=== PATIENT | female | born 2000 | race Caucasian/White ===

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

== ENCOUNTER → 2021-01-07 08:01 | Outpatient (BNVA) | payer MEDICAID, SELFPAY | PROVIDERS: PCP Nurse Practitioner; Visit Provider Psychiatry & Neurology Psychiatry | DX: F33.2 Major depressive disorder, recurrent severe without psychotic features (principal); F41.1 Generalized anxiety disorder; F60.3 Borderline personality disorder; F12.10 Cannabis abuse, uncomplicated; F17.200 Nicotine dependence, unspecified, uncomplicated; F10.20 Alcohol dependence, uncomplicated | CPT/HCPCS: 99214 ==

== ENCOUNTER 2021-01-11 18:33 | Emergency (ER) | payer MEDICAID, SELFPAY ==
--- NOTE | 2021-01-11 19:00 | ECG_ITS ---
[facility] Test Date: 2021-01-11 Pat Name: Conchita Cancino Department: Room: Gender: Female Field Identification Specialist: : 2000 Requested By: Sundeep Sahu Order Number: [id number] Collins MD: Vangie Arthur M.D. Measurements Intervals [place] Rate: 73 P: 5 NE: 171 QRS: 8 QRSD: 104 T: 12 QT: 400 QTc: 443 Interpretive Statements SINUS RHYTHM Compared to ECG 10/26/2019 12:14:22 Sinus tachycardia no longer present Indeterminate axis no longer present Electronically Signed On 01-12-2021 16:44:50 CDT by Vangie Arthur M.D. [email or web address]
--- NOTE | 2021-01-11 19:06 | ED_ITS ---
HPI - Abdominal Pain General: Chief Complaint: Dizziness Stated Complaint: SYNCOPE ABD PAIN Time Seen by Provider: 01/11/21 19:00 History of Present Illness: HPI narrative: 20-year-old female comes in today with complaints of feeling lightheaded and becoming near syncopal. Patient was started on azithromycin today for a positive chlamydia test that was done last week. Patient takes paroxetine routinely for her depression. Patient does have a history of cannabis use, nicotine dependence, alcohol use, major depression, anxiety, borderline personality disorder. Patient reports that she cannot really say what happened she is became lightheaded and seeing some flashes of light in front of her eyes and then sat down and recovered. Patient appears well. Patient does report some suprapubic abdominal tenderness. Related Data: Date of Last Menstrual Period: 07/12/20 Review of Systems General: Reports: 10 or more systems reviewed and unremarkable except in HPI and below GI: Reports: abdominal pain Neuro: Reports: other (Lightheadedness) [facility] ED PFSH: Medical History (Updated 01/11/21 @ 21:03 by JUAN MIGUEL Ren) Anxiety and depression Bronchospasm Cluster B personality disorder Recurrent UTI Surgical History H/O esophagogastroduodenoscopy (03/03/20) normal Family History Other Bipolar disorder Social History Smoking and tobacco status: current every day smoker cigarettes Packs smoked per day: 0.50 Quit status (tobacco): has tried quititng Number of times tried to quit tobacco: 2 Second hand smoke exposure: Yes Smoking risk assessment/counseling performed?: No Alcohol intake: current Alcohol intake frequency: holidays/special occasions only Desire information about alcohol rehabilitation?: No Counseling given: No Desire information about substance/drug rehabilitation?: No Counseling given: No Adopted: No Caregiver/support person: No Lives independently: Yes Household members: family Housing: House Marital status: Single Number of children: 0 Highest education level completed: High School Graduate service: No Current occupational status: employed Current occupation: [employer] History of recent travel: No Female Reproductive History: Date of last menstrual period: 07/12/20 Para: 0 Spontaneous abortions: Yes (06/22/2019 had total 4 SAB but does not know when <8 weeks) Physical Exam Const: COMMON NORMALS: no acute distress and patient oriented x3 GENERAL APPEARANCE: cooperative HENMT: COMMON NORMALS: normocephalic, TM's normal bilaterally and Normal external nose present HEAD & SCALP: normal to inspection and normocephalic NOSE: Normal external nose present TYMPANIC MEMBRANE: TM's normal bilaterally MOUTH: Normal oral and palatal mucosa present THROAT: posterior oropharynx normal Eye: GENERAL EYE: appearance normal, both eyes and all related structures Neck/C-Spine: COMMON NORMALS: full ROM Lymph: LYMPHATIC: no lymphadenopathy noted Chest: COMMONS NORMALS: normal inspection of the chest Resp: COMMON NORMALS: normal respiratory effort EFFORT & INSPECTION: Yes able to speak in complete sentences Cardio: COMMON NORMALS: regular rate and regular rhythm RATE: regular rate RHYTHM: regular rhythm GI: COMMON NORMALS: non-tender : COMMON NORMALS: Yes no CVA tenderness BLADDER/KIDNEY EXAM: Yes no CVA tenderness Back/Pelvis: COMMON NORMALS: no CVA tenderness and thoracic and lumbar spine normal to inspection Extremity: COMMON NORMALS: normal to inspection Neuro: COMMON NORMALS: patient oriented x3 and moves all extremities Psych: COMMON NORMALS: mental status grossly normal and cooperative Skin: COMMON NORMALS: no rashes or lesions noted GENERAL SKIN EXAM: no rashes or lesions noted Course Vital Signs: Vital signs: Vital Signs Temperature 98.5 F 01/11/21 19:29 Pulse Rate 79 01/11/21 19:29 Respiratory Rate 16 01/11/21 19:29 Blood Pressure 103/62 01/11/21 19:29 Pulse Oximetry 97 01/11/21 19:29 MDM - Abdominal Pain MDM Narrative: Medical decision making narrative: Patient comes in today for complaints of lightheadedness and fainting episode. Patient did not fall or injure herself with the episode. Patient reports that she started seeing spots and felt like she was going to pass out and sat down. Patient then aroused and EMS was called. Patient comes in exam is normal. Respirations are even lungs are clear to auscultation. Vital signs are normal. Differential diagnosis includes but not limited to vasovagal syncope, anxiety, substance abuse. Laboratory values were unremarkable. It was noted that patient is . Patient has recently been started on azithromycin for chlamydia. I encourage patient to drink plenty of fluids. She was given 1 L of IV fluids with improvement of overall symptoms. Recommend follow-up patient reported understanding agreed to plan. Lab Data: Labs: Lab Results 01/11/21 01/11/21 01/11/21 Range/Units 19:20 19:20 19:20 WBC 12.7 (4.5-13.0) 10^3/ uL RBC 3.92 L (4.1-5.3) 10^6/u L Hgb 11.0 L (11.5-15.3) g/dL Hct 33.2 L (37.0-47.0) % MCV 84.7 (81-99) fL MCH 28.1 (28.0-34.0) pg MCHC 33.1 (30.0-36.0) g/dL RDW 14.7 (12.1-15.1) % Plt Count 224 (130-400) 10^3/c mm MPV 10.5 H (7.4-10.4) fL Neut % (Auto) 75.6 % Lymph % (Auto) 16.3 % [place] % (Auto) 6.9 % Eos % (Auto) 0.5 % Baso % (Auto) 0.2 % Neut # (Auto) 9.64 H (1.8-8.0) 10^3/u L Lymph # (Auto) 2.1 (1.5-6.5) 10^3/u L [place] # (Auto) 0.9 (0.2-0.9) 10^3/u L Eos # (Auto) 0.1 (0.0-0.8) 10^3/u L Baso # (Auto) 0.0 (0.0-0.1) 10^3/u L Nucleated RBC % (a uto) 0 % Nucleated RBCs # 0.0 /100WBC Sodium 136 (136-145) mmol/L Potassium 3.4 L (3.5-5.1) mmol/L Chloride 105 (98-107) mmol/L Carbon Dioxide 21 L (22-29) mmol/L Anion Gap 13.4 (5-19) BUN 9 (6-20) mg/dL Creatinine 0.4 L (0.5-0.9) mg/dL GFR Calculation 205.6 H (90-130) mL/min Glucose 86 (65-115) mg/dL Calculated Osmolal ity 280 L (285-295) mOsm/k g Calcium 8.3 L (8.5-10.5) mg/dL Total Bilirubin 0.2 (0.15-1.2) mg/dL AST 10 (0-32) U/L ALT 7 (0-33) U/L Alkaline Phosphata se 66 (35-105) IU/L Total Protein 5.8 L (6.6-8.7) g/dL Albumin 3.3 L (3.5-5.2) g/dL Globulin 2.5 (1.3-4.6) g/dL Lipase 21 (13-60) U/L HCG, Qual Positive H (Negative) Urine Color (Yellow) Urine Appearance (CLEAR) Urine pH (5-7) Ur Specific Gravit y (1.005-1.030) Urine Protein (Negative) Urine Glucose (UA) (Normal) Urine Ketones (Negative) Urine Blood (Negative) Urine Nitrate (Negative) Urine Bilirubin (Negative) Urine Urobilinogen (Negative) mg/dL Ur Leukocyte Kalina ase (Negative) Urine RBC (0-2) /hpf Urine WBC (0-5) /hpf Ur Squamous Epith Cells (0-5) /hpf Amorphous Sediment Urine Bacteria (NONE) /hpf Urine Mucus /hpf 01/11/21 Range/Units 19:45 WBC (4.5-13.0) 10^3/ uL RBC (4.1-5.3) 10^6/u L Hgb (11.5-15.3) g/dL Hct (37.0-47.0) % MCV (81-99) fL MCH (28.0-34.0) pg MCHC (30.0-36.0) g/dL RDW (12.1-15.1) % Plt Count (130-400) 10^3/c mm MPV (7.4-10.4) fL Neut % (Auto) % Lymph % (Auto) % [place] % (Auto) % Eos % (Auto) % Baso % (Auto) % Neut # (Auto) (1.8-8.0) 10^3/u L Lymph # (Auto) (1.5-6.5) 10^3/u L [place] # (Auto) (0.2-0.9) 10^3/u L Eos # (Auto) (0.0-0.8) 10^3/u L Baso # (Auto) (0.0-0.1) 10^3/u L Nucleated RBC % (a uto) % Nucleated RBCs # /100WBC Sodium (136-145) mmol/L Potassium (3.5-5.1) mmol/L Chloride (98-107) mmol/L Carbon Dioxide (22-29) mmol/L Anion Gap (5-19) BUN (6-20) mg/dL Creatinine (0.5-0.9) mg/dL GFR Calculation (90-130) mL/min Glucose (65-115) mg/dL Calculated Osmolal ity (285-295) mOsm/k g Calcium (8.5-10.5) mg/dL Total Bilirubin (0.15-1.2) mg/dL AST (0-32) U/L ALT (0-33) U/L Alkaline Phosphata se (35-105) IU/L Total Protein (6.6-8.7) g/dL Albumin (3.5-5.2) g/dL Globulin (1.3-4.6) g/dL Lipase (13-60) U/L HCG, Qual (Negative) Urine Color Yellow (Yellow) Urine Appearance Clear (CLEAR) Urine pH 6 (5-7) Ur Specific Gravit y 1.020 (1.005-1.030) Urine Protein Neg (Negative) Urine Glucose (UA) Norm (Normal) Urine Ketones Negative (Negative) Urine Blood Neg (Negative) Urine Nitrate Negative (Negative) Urine Bilirubin Neg (Negative) Urine Urobilinogen 1 H (Negative) mg/dL Ur Leukocyte Kalina ase Trace H (Negative) Urine RBC 0-4 H (0-2) /hpf Urine WBC 5-10 H (0-5) /hpf Ur Squamous Epith Cells 10-15 H (0-5) /hpf Amorphous Sediment Not Reportable Urine Bacteria Trace (NONE) /hpf Urine Mucus 1+ /hpf EKG Data ^: EKG 1: Attestation: I personally reviewed and interpreted this EKG as follows: (1930, EKG shows a normal EKG with a sinus rhythm at 73 bpm and regular. There is no ectopy or ST elevation. There is no sign of acute infarct. No prior example is for comparison.) Discharge Plan Discharge Patient Disposition: Home Clinical Impression: Fainting Qualifiers: Syncope type: vasovagal syncope Qualified Code(s): R55 - Syncope and collapse Qualifiers: Weeks of gestation: less than 8 weeks Qualified Code(s): Z3A.01 - Less than 8 weeks gestation of Condition: Stable Prescriptions: No Action fluoxetine [Prozac] 20 mg capsule 20 mg PO DAILY@0900 Qty: 30 RF: 2 albuterol sulfate [Ventolin HFA] 90 mcg/actuation HFA aerosol inhaler 2 puff inhalation Q6H PRN (Reason: shortness of breath or wheezing) Qty: 6.7 RF: 0 Low Iron 27 mg iron- 1 mg tablet 1 tab PO DAILY Qty: 30 RF: 8 Reglan 10 mg tablet 10 mg PO Q6H PRN (Reason: nausea and vomiting) Qty: 20 RF: 0 Discharge Orders: Discharge ED (Routine); Ordered 01/11/21 Ordered By: Sundeep Novak Referrals: Rudy Michelle, PROMOTIONAL MARKETING AGENT-C [Primary Care Provider] - Discharge Diet: Usual diet Discharge Activity: Increase activity as tolerated Patient Instructions: Syncope (ED), Opioid Safety Activity Restrictions/Additional Instructions: Drink plenty of fluids. Continue with routine medications as directed. Follow- up with your SUPERVISOR ADVICE for other instructions. Return to the ER for new concerns. Coding Level of Care Code ED Mosquito Sprayer for Padilla Fwally Exam Comprehensive
[2021-01-11 19:28] LABS: Basophils % 0.2 %; Eosinophils # 0.1 10^3/uL (0.0-0.8); Eosinophils % 0.5 %; Hematocrit 33.2 % (37.0-47.0); Lymphocytes # 2.1 10^3/uL (1.5-6.5); Lymphocytes % 16.3 %; Mean Corpuscular HGB Conc 33.1 g/dL (30.0-36.0); Mean Corpuscular Hemoglobin 28.1 pg (28.0-34.0); Mean Corpuscular Volume 84.7 fL (81-99); Mean Platelet Volume 10.5 fL (7.4-10.4); Monocytes # 0.9 10^3/uL (0.2-0.9); Monocytes % 6.9 %; Neutrophils # 9.64 10^3/uL (1.8-8.0); Neutrophils % 75.6 %; Nucleated Red Blood Cells % 0 %; Platelet Count 224 10^3/cmm (130-400); Red Blood Count 3.92 10^6/uL (4.1-5.3); Red Cell Distribution Width 14.7 % (12.1-15.1); White Blood Count 12.7 10^3/uL (4.5-13.0)
[2021-01-11 19:29] VITALS: BP 103/62; PULSE 79; RESP 16; TEMP 36.9; O2SAT 97; BMI 36.8
[2021-01-11] MEDS: sodium chloride 0.9% 1,000 ML 999 ML IV (19:45)
[2021-01-11] MEDS: ondansetron 2 mg/ML SDV 2 mL 4 MG IVP (19:45)
[2021-01-11 19:49] LABS: Alanine Aminotransferase 7 U/L (0-33); Albumin Level 3.3 g/dL (3.5-5.2); Alkaline Phosphatase 66 IU/L (35-105); Anion Gap 13.4 (5-19); Aspartate Amino Transferase 10 U/L (0-32); Blood Urea Nitrogen 9 mg/dL (6-20); Calcium 8.3 mg/dL (8.5-10.5); Carbon Dioxide 21 mmol/L (22-29); Chloride 105 mmol/L (98-107); Globulin 2.5 g/dL (1.3-4.6); Glomerular Filtration Rate 205.6 mL/min (90-130); Glucose 86 mg/dL (65-115); Lipase 21 U/L (13-60); Osmolality Calculated 280 mOsm/kg (285-295); Potassium 3.4 mmol/L (3.5-5.1); Sodium 136 mmol/L (136-145); Total Bilirubin 0.2 mg/dL (0.15-1.2); Total Protein 5.8 g/dL (6.6-8.7)
[2021-01-11 19:50] LABS: HCG, Serum Qual Positive (Negative)
[2021-01-11 20:14] LABS: Urine Appearance Clear (CLEAR); Urine Color Yellow (Yellow); pH Urine 6 (5-7)
[2021-01-11 20:15] LABS: Add Urine Culture? No; Add Urine Microscopic? YES; Bacteria Urine TRACE /hpf; Bilirubin Urine Neg (Negative); Blood Urine Neg (Negative); Glucose Urine UA Norm (Normal); Ketones Urine Negative (Negative); Leukocyte Esterase Urine Trace (Negative); Mucus Urine 1+ /hpf; Nitrate Urine Negative (Negative); Protein Urine Neg (Negative); RBC Urine 0-4 /hpf (0-2); Urobilinogen Urine 1 mg/dL (Negative)
[2021-01-11 21:07] VITALS: BP 105/78; PULSE 76; RESP 17; O2SAT 99
== END 2021-01-11 21:15 | disposition home or self-care (01) ==
PROVIDERS: Emergency Provider Nurse Practitioner Family; PCP Nurse Practitioner
DX: O26.891 Other specified pregnancy related conditions, first trimester (principal); R55 Syncope and collapse; O99.331 Smoking (tobacco) complicating pregnancy, first trimester; F17.210 Nicotine dependence, cigarettes, uncomplicated; Z3A.01 Less than 8 weeks gestation of pregnancy
CPT/HCPCS: 80053; 81001; 83690; 84703; 85025; 93005; 96361; 96374; 99284; J2405; J7030

== ENCOUNTER → 2021-01-12 15:35 | Outpatient (BNVA) | payer MEDICAID, SELFPAY | PROVIDERS: PCP Nurse Practitioner; Visit Provider Nurse Practitioner Family | DX: Z20.822 Contact with and (suspected) exposure to COVID-19 (principal) | CPT/HCPCS: 87635 ==

== ENCOUNTER 2021-03-17 20:47 | Outpatient (CLI) | payer MEDICAID, SELFPAY ==
[2021-03-17 21:01] VITALS: TEMP 35.8
[2021-03-17 21:03] VITALS: BP 134/60; PULSE 96
[2021-03-17 21:09] VITALS: RESP 16; BMI 37.0
[2021-03-17 22:13] LABS: Add Urine Culture? No; Add Urine Microscopic? YES; Bacteria Urine 4+ /hpf; Bilirubin Urine Neg (Negative); Blood Urine Neg (Negative); Glucose Urine UA Norm (Normal); Ketones Urine Negative (Negative); Leukocyte Esterase Urine 2+ (Negative); Nitrate Urine Negative (Negative); Protein Urine Neg (Negative); RBC Urine 0-4 /hpf (0-2); Squamous Epithelial Cell Urine 40-55 /hpf (0-5); Urine Appearance Cloudy (CLEAR); Urine Color Yellow (Yellow); Urobilinogen Urine 4 mg/dL (Negative); WBC Urine 40-55 /hpf (0-5); pH Urine 5 (5-7)
--- NOTE | 2021-03-19 10:05 | PC.NURSE ---
SCRIPT FOR MACROBID 100MG PO BID X7 DAYS CALLED INTO [facility] AT 1005 03/19/2021, THIS LINER ROLL CHANGER TALKED WITH ALONZO AT PHARMACY AND THEN CALLED PATIENT TO LET HER KNOW THAT IT WAS CALLED IN.
--- NOTE | 2021-03-19 10:07 | PC.NURSE ---
UNABLE TO REACH PATIENT AT [phone] AND UNABLE TO LEAVE MESSAGE EITHER.
== END 2021-03-17 22:38 | disposition home or self-care (01) ==
LOC: OPOB 20:52 → OBGYN 20:54
PROVIDERS: PCP Nurse Practitioner; Visit Provider Family Medicine
DX: O26.899 Other specified pregnancy related conditions, unspecified trimester (principal); Z3A.00 Weeks of gestation of pregnancy not specified; R10.9 Unspecified abdominal pain
CPT/HCPCS: 81001; 99211

== ENCOUNTER → 2021-03-31 08:02 | Outpatient (BNVA) | payer MEDICAID, SELFPAY | PROVIDERS: PCP Nurse Practitioner; Referring Provider Family Medicine; Visit Provider Specialist | DX: F44.5 Conversion disorder with seizures or convulsions (principal); F17.200 Nicotine dependence, unspecified, uncomplicated | CPT/HCPCS: 95816 ==

== ENCOUNTER 2021-04-01 21:52 | Outpatient (CLI) | payer MEDICAID, SELFPAY ==
[2021-04-01] VITALS (7 sets, daily range): BP systolic 95–125; BP diastolic 53–78; PULSE 53–196; RESP 17; TEMP 36.6; BMI 39.8
[2021-04-01 22:45] LABS: Bilirubin Urine Neg (Negative); Blood Urine Neg (Negative); Glucose Urine UA Norm (Normal); Ketones Urine 1+ (Negative); Leukocyte Esterase Urine Negative (Negative); Nitrate Urine Negative (Negative); Protein Urine Neg (Negative); Urine Appearance Clear (CLEAR); Urine Color Straw (Yellow); Urobilinogen Urine Norm (Negative); pH Urine 7 (5-7)
[2021-04-01 23:00] LABS: Add Urine Culture? No; Bacteria Urine TRACE /hpf; Squamous Epithelial Cell Urine 0-4 /hpf (0-5)
== END 2021-04-01 23:47 | disposition home or self-care (01) ==
LOC: OPOB 21:56 → OBGYN 21:58
PROVIDERS: PCP Nurse Practitioner; Visit Provider Family Medicine
DX: O21.9 Vomiting of pregnancy, unspecified (principal); Z3A.00 Weeks of gestation of pregnancy not specified; M54.9 Dorsalgia, unspecified
CPT/HCPCS: 59025; 81001; 99211

== ENCOUNTER → 2021-04-05 11:09 | Outpatient (BNVA) | payer MEDICAID, SELFPAY | PROVIDERS: PCP Nurse Practitioner; Visit Provider Psychiatry & Neurology Psychiatry | DX: F43.12 Post-traumatic stress disorder, chronic (principal); F33.2 Major depressive disorder, recurrent severe without psychotic features; F41.1 Generalized anxiety disorder; F60.3 Borderline personality disorder; Z34.90 Encounter for supervision of normal pregnancy, unspecified, unspecified trimester; F10.20 Alcohol dependence, uncomplicated; F17.210 Nicotine dependence, cigarettes, uncomplicated | CPT/HCPCS: 99214 ==

== ENCOUNTER 2021-04-17 16:00 | Outpatient (CLI) | payer MEDICAID, SELFPAY ==
[2021-04-17 16:11] VITALS: BP 108/53; PULSE 86; TEMP 37.2
[2021-04-17 16:16] VITALS: BMI 39.6
[2021-04-17 16:44] VITALS: BP 114/78; PULSE 92
[2021-04-17 17:11] VITALS: BP 110/53; PULSE 73
== END 2021-04-17 17:40 | disposition home or self-care (01) ==
LOC: OPOB 16:06 → OBGYN 16:08
PROVIDERS: PCP Nurse Practitioner; Visit Provider Family Medicine
DX: O99.350 Diseases of the nervous system complicating pregnancy, unspecified trimester (principal); Z3A.00 Weeks of gestation of pregnancy not specified
CPT/HCPCS: 59025; 99211

== ENCOUNTER 2021-05-11 18:08 | Outpatient (CLI) | payer MEDICAID, SELFPAY ==
[2021-05-11] VITALS (14 sets, daily range): BP systolic 91–127; BP diastolic 50–68; PULSE 71–88; RESP 16; TEMP 36.8; BMI 40.7
[2021-05-11 18:50] LABS: Actim Prom Negative
== END 2021-05-11 21:46 | disposition home or self-care (01) ==
LOC: OPOB 18:15 → OBGYN 18:16
PROVIDERS: PCP Nurse Practitioner; Visit Provider Family Medicine
DX: O47.9 False labor, unspecified (principal); O99.891 Other specified diseases and conditions complicating pregnancy; N89.8 Other specified noninflammatory disorders of vagina
CPT/HCPCS: 59025; 84112; 99211

== ENCOUNTER 2021-05-12 14:35 | Outpatient (CLI) | payer MEDICAID, SELFPAY ==
[2021-05-12] VITALS (8 sets, daily range): BP systolic 99–119; BP diastolic 52–74; PULSE 67–79; RESP 18; BMI 39.4
[2021-05-12] MEDS: NIFEdipine ER (24 hr) 30 mg Tablet PO (17:07)
[2021-05-12 17:18] LABS: Urine Appearance SL Hazy (CLEAR); Urine Color Yellow (Yellow)
[2021-05-12 17:19] LABS: Bilirubin Urine Neg (Negative); Blood Urine Neg (Negative); Glucose Urine UA Norm (Normal); Ketones Urine Negative (Negative); Leukocyte Esterase Urine Negative (Negative); Nitrate Urine Negative (Negative); Protein Urine Neg (Negative); Specific Gravity, Urine 1.005 (1.005-1.030); Urobilinogen Urine Norm (Negative); pH Urine 7 (5-7)
[2021-05-12 17:20] LABS: Add Urine Culture? No; Bacteria Urine TRACE /hpf; Squamous Epithelial Cell Urine 0-4 /hpf (0-5)
== END 2021-05-12 17:09 | disposition home or self-care (01) ==
LOC: OPOB 14:43 → OBGYN 14:45
PROVIDERS: Family Medicine; PCP Nurse Practitioner; Visit Provider Family Medicine
DX: O47.9 False labor, unspecified (principal)
CPT/HCPCS: 59025; 81001; 99211

== ENCOUNTER 2021-05-14 19:30 | Outpatient (CLI) | payer MEDICAID, SELFPAY ==
[2021-05-14] VITALS (24 sets, daily range): BP systolic 116–130; BP diastolic 58–73; PULSE 83–95; RESP 18; TEMP 37.1; O2SAT 91–100; BMI 41.1
[2021-05-14] MEDS: terbutaline 1 mg/mL INJ 0.25 MG SUBCUT (20:16)
[2021-05-14 20:19] LABS: Add Urine Microscopic? NO; Charge for UA Resulting for Rev
[2021-05-14] MEDS: lactated ringers 1,000 ML 999 ML IV (20:22)
[2021-05-14 20:27] LABS: Bilirubin Urine Neg (Negative); Blood Urine Neg (Negative); Glucose Urine UA Norm (Normal); Ketones Urine Negative (Negative); Leukocyte Esterase Urine Negative (Negative); Nitrate Urine Negative (Negative); Protein Urine Neg (Negative); Urine Appearance Clear (CLEAR); Urine Color Straw (Yellow); Urobilinogen Urine Norm (Negative); pH Urine 7 (5-7)
== END 2021-05-14 22:03 | disposition home or self-care (01) ==
LOC: OPOB 19:33 → OBGYN 19:34
PROVIDERS: PCP Nurse Practitioner; Visit Provider Family Medicine
DX: O99.891 Other specified diseases and conditions complicating pregnancy (principal); M54.50 Low back pain, unspecified
CPT/HCPCS: 59025; 81003; 96360; 96372; 99211; J3105

== ENCOUNTER 2021-05-23 16:23 | Outpatient (CLI) | payer MEDICAID, SELFPAY ==
[2021-05-23 16:23] VITALS: BMI 40.5
[2021-05-23 16:38] VITALS: BP 129/63; PULSE 93
[2021-05-23 16:55] VITALS: BP 122/60; PULSE 74
[2021-05-23 17:09] VITALS: BP 108/59; PULSE 81
[2021-05-23 17:24] VITALS: BP 108/57; PULSE 79
[2021-05-23 17:39] VITALS: BP 112/59; PULSE 84
[2021-05-23 18:36] VITALS: BP 112/59; PULSE 84; RESP 18; TEMP 36.8
== END 2021-05-23 17:55 | disposition home or self-care (01) ==
LOC: OPOB 16:24 → OBGYN 16:25
PROVIDERS: PCP Nurse Practitioner; Visit Provider Family Medicine
DX: O47.9 False labor, unspecified (principal); Z3A.00 Weeks of gestation of pregnancy not specified
CPT/HCPCS: 59025; 99211

== ENCOUNTER 2021-06-02 11:25 | Inpatient (IN) | payer MEDICAID, SELFPAY ==
[2021-06-02] VITALS (58 sets, daily range): BP systolic 90–149; BP diastolic 51–92; PULSE 52–98; RESP 18; TEMP 36.1–36.9; O2SAT 97–100; BMI 40.3
[2021-06-02 10:37] LABS: Bilirubin Urine Neg (Negative); Blood Urine Neg (Negative); Glucose Urine UA Norm (Normal); Ketones Urine Negative (Negative); Leukocyte Esterase Urine 1+ (Negative); Nitrate Urine Negative (Negative); Protein Urine Neg (Negative); Specific Gravity, Urine 1.015 (1.005-1.030); Urine Appearance Clear (CLEAR); Urine Color Yellow (Yellow); Urobilinogen Urine 1 mg/dL (Negative); pH Urine 7 (5-7)
[2021-06-02 10:46] LABS: Amphetamines Screen Urine Negative (Negative); Barbiturates Screen Urine Negative (Negative); Benzodiazepines Screen Urine Negative (Negative); Cocaine Screen Urine Negative (Negative); Opiate Screen Urine Negative (Negative); PCP Screen Urine Negative (Negative); THC Screen Urine Negative (Negative)
[2021-06-02 10:52] LABS: RBC Urine 0-4 /hpf (0-2); Transitional Epi Cells Urine 0-4 /hpf
[2021-06-02 10:53] LABS: Add Urine Culture? No; Amorphous Sediment Urine TRACE /hpf; Bacteria Urine 1+ /hpf
[2021-06-02] MEDS: lactated ringers 1,000 ML 999 ML IV ×2 (11:43→11:46)
[2021-06-02 12:08] LABS: Basophils % 0.2 %; Eosinophils % 0.2 %; Hemoglobin 9.6 g/dL (11.5-15.3); Lymphocytes # 2.3 10^3/uL (1.5-6.5); Lymphocytes % 12.5 %; Mean Corpuscular Hemoglobin 23.5 pg (28.0-34.0); Mean Corpuscular Volume 78.4 fl (81-99); Mean Platelet Volume 10.9 fL (7.4-10.4); Monocytes % 5.4 %; Neutrophils # 14.49 10^3/uL (1.8-8.0); Neutrophils % 80.5 %; Nucleated Red Blood Cells % 0.2 %; Platelet Count 323 10^3/cmm (130-400); Red Blood Count 4.08 10^6/uL (4.1-5.3); Red Cell Distribution Width 16.3 % (12.1-15.1)
--- NOTE | 2021-06-02 13:11 | ANES.PREANE2 ---
Pre-Anesthetic Assessment Pre-Anesthetic Assessment: Height/Weight: Height 1.63 m Weight 106.594 kg Temp Pulse BP Pulse Ox 97.0 F L 72 104/57 99 06/02/21 12:07 06/02/21 13:05 06/02/21 13:05 06/02/21 13:05 Preop Diagnosis: egd Proposed Procedure: Epidural Familial anesthetic complications: None Last intake: > 8 hrs Social: Social History: Tobacco and No alcohol Exam: Pre-Anes Outpt Exam: alert, oriented x 3, clear to auscultation bilaterally and regular rate & rhythm Airway: MP: 3 Dentition: Full Neuropsych: Neuropsych: Seizure Anesthetic Plan: ASA status: 3 Anesthesia: General Risk of > 500 ml blood loss (7ml/kg in children): No Meds/Allergies Current Medications: Current Medications Generic Name Dose Route Start Last Admin Trade Name Freq PRN Reason Stop Dose Admin Ropivacaine 200 mg in 100 mls @ 13 mls/hr 06/02/21 11:15 06/02/21 11:46 Naropin Premix EPIDURAL 13 mls/hr .Q7H42M YAS Administration Lactated Ringer's 1,000 mls @ 999 m ls/hr 06/02/21 11:12 06/02/21 11:46 Lactated Ringers IV 999 mls/hr .Q1H1M PRN Administration ANESTHESIA PFSH Anesthesia PFSH: Medical History (Updated 04/14/21 @ 11:28 by Shannon Lopez) Anxiety and depression Bronchospasm Cluster B personality disorder Psychiatric care Recurrent UTI Surgical History H/O esophagogastroduodenoscopy (03/03/20) normal Family History Other Bipolar disorder Social History Smoking and tobacco status: never smoked Quit status (tobacco): has tried quititng Number of times tried to quit tobacco: 2 Second hand smoke exposure: Yes Smoking risk assessment/counseling performed?: No Alcohol intake: current Alcohol intake frequency: holidays/special occasions only Desire information about alcohol rehabilitation?: No Counseling given: No Desire information about substance/drug rehabilitation?: No Counseling given: No Adopted: No Caregiver/support person: No Lives independently: Yes Household members: family Housing: House Marital status: Single Number of children: 0 Highest education level completed: High School Graduate service: No Current occupational status: employed Current occupation: [employer] History of recent travel: No Female Reproductive History: Date of last menstrual period: 09/10/20 : 1 Para: 0 Spontaneous abortions: Yes (06/22/2019 had total 4 SAB but does not know when <8 weeks) Data Anesthesia CBC & Chem 7: 06/02/21 11:30 Other Labs: Laboratory Results - last 48 hr 06/02/21 06/02/21 06/02/21 09:55 09:55 11:30 WBC 18.0 H RBC 4.08 L Hgb 9.6 L Hct 32.0 L MCV 78.4 L MCH 23.5 L MCHC 30.0 RDW 16.3 H Plt Count 323 MPV 10.9 H Neut % (Auto) 80.5 Lymph % (Auto) 12.5 [place] % (Auto) 5.4 Eos % (Auto) 0.2 Baso % (Auto) 0.2 Neut # (Auto) 14.49 H Lymph # (Auto) 2.3 [place] # (Auto) 1.0 H Eos # (Auto) 0.0 Baso # (Auto) 0.0 Nucleated RBC % (auto) 0.2 Nucleated RBCs # 0.0 Urine Color Yellow Urine Appearance Clear Urine pH 7 Ur Specific [place] 1.015 Urine Protein Neg Urine Glucose (UA) Norm Urine Ketones Negative Urine Blood Neg Urine Nitrate Negative Urine Bilirubin Neg Urine Urobilinogen 1 H Ur Leukocyte Esterase 1+ H Urine RBC 0-4 H Urine WBC 5-10 H Ur Squamous Epith Cells 10-15 H Ur Transition Epith Cell 0-4 Amorphous Sediment Trace Urine Bacteria 1+ H Urine Opiates Screen Negative Ur Barbiturates Screen Negative Ur Phencyclidine Scrn Negative Ur Amphetamines Screen Negative U Benzodiazepines Scrn Negative Urine Cocaine Screen Negative U Marijuana (THC) Screen Negative Cardiac Studies: No Data to Display
[2021-06-02] MEDS: dextrose 5%-lactated ringers 1,000 ML 125 ML IV (13:41)
[2021-06-02] MEDS: ondansetron 2 mg/ML SDV 2 mL 4 MG IVP (16:26)
--- NOTE | 2021-06-02 20:47 | P.PCNOB_ITS ---
Delivery Note: Date of delivery: June 02, 2021 Pre-Delivery Course: The patient had routine care at [facility]. YESSI was 06/17 by LMP consistent with a 14-week ultrasound. Mother was blood type B+ antibody negative, GC chlamydia negative, FTA-ABS nonreactive, hepatitis B surface antigen nonreactive, hepatitis C antibody nonreactive, HIV nonreactive, rubella immune, UDS positive for THC, she passed her 1 hour glucose tolerance test, she was GBS negative. There were no complications during the . Delivery: This is a 21-year-old G1, P0 at 37 weeks 6 days gestation who presented to labor and delivery in active labor. Her labor progressed on its own. She received an epidural for pain management. She had spontaneous rupture of membranes with meconium stained fluid. Rupture of membranes was approximately 4 hours prior to delivery. She had a normal spontaneous vaginal delivery of a viable female infant weight 2970 g, 6 pounds 9 ounces, Apgars 8 and 10 over an intact perineum. The infant was suctioned at delivery and placed on the mother's chest. The cord was clamped and cut. The placenta was delivered grossly intact and normal to inspection. There was a first-degree right vaginal laceration that was sutured using 3-0 chromic. Mother and were doing well after delivery. Estimated blood loss 200 mL Coding Level of Care Code Acute Design/Animation Instructor for Chg Fwally
--- NOTE | 2021-06-02 20:47 | PM.OPHPUD ---
Labor & Delivery H&P Update Date of Procedure: June 02, 2021 Date H&P Performed: 02/17/20 Admission Diagnosis: , active labor
[2021-06-02] MEDS: ibuprofen 800 mg tablet PO (23:47)
[2021-06-03] VITALS (14 sets, daily range): BP systolic 81–135; BP diastolic 36–66; PULSE 66–79; RESP 16–18; TEMP 36.2–36.5
[2021-06-03] MEDS: acetaminophen 325 mg Tablet 650 MG PO ×3 (06:18→18:09)
[2021-06-03] MEDS: prenatal vitamin Capsule 1 CAP PO (09:58)
[2021-06-03] MEDS: ibuprofen 800 mg tablet PO ×3 (09:58→21:11)
[2021-06-03] MEDS: docusate sodium 100 mg Capsule PO ×2 (09:58→18:09)
[2021-06-03] MEDS: fluoxetine 20 mg Capsule PO (09:58)
[2021-06-03 11:51] LABS: Basophils % 0.1 %; Eosinophils % 0.2 %; Hematocrit 27.7 % (37.0-47.0); Hemoglobin 8.2 g/dL (11.5-15.3); Lymphocytes # 1.7 10^3/uL (1.5-6.5); Lymphocytes % 9.9 %; Mean Corpuscular HGB Conc 29.6 g/dL (30.0-36.0); Mean Corpuscular Hemoglobin 23.8 pg (28.0-34.0); Mean Corpuscular Volume 80.5 fl (81-99); Mean Platelet Volume 10.5 fL (7.4-10.4); Monocytes # 0.7 10^3/uL (0.2-0.9); Monocytes % 4.2 %; Neutrophils # 14.36 10^3/uL (1.8-8.0); Neutrophils % 84.7 %; Nucleated Red Blood Cells % 0.1 %; Red Blood Count 3.44 10^6/uL (4.1-5.3); Red Cell Distribution Width 16.5 % (12.1-15.1)
[2021-06-03 11:59] LABS: Platelet Count 201 10^3/cmm (130-400)
--- NOTE | 2021-06-03 13:12 | PM.PN ---
Subjective Subjective: Interval history: I was notified by nursing that patient was complaining of severe abdominal pain and writhing in bed despite ibuprofen and Tylenol. When I presented to examine her she was sleeping comfortably. Abdomen was soft nontender, fundus was firm. She states her bleeding seems to be about average like a period. Vitals/I&O/Wt Last Vital Signs Temp 97.3 F L 06/03/21 10:43 Pulse 76 06/03/21 10:41 Resp 18 06/03/21 10:43 BP 108/55 06/03/21 10:41 Pulse Ox 99 06/02/21 13:05 06/02/21 06/03/21 06/03/21 22:59 06:59 14:59 Intake Total 100 / 149.95 Output Total 800 / 800 500 / 1300 Balance -700 / -650.05 -500 / -1150.05 Weight last 48 hrs Weight 106.594 kg Physical Exam Narrative: EXAM NARRATIVE: Sleeping in bed easily arousable, smiles, heart regular rate and rhythm, lungs clear to auscultation bilaterally, abdomen is soft and nontender, fundus is firm and U- 2, no extremity tenderness, some bilateral nonpitting edema of the lower extremities no calf tenderness. Urinary Catheter Management^: Hair: Cath Placed During This Visit: yes Urinary Catheter Date of Insertion: 06/02/21 Urinary Catheter Time of Insertion: 12:40 Data : 06/03/21 11:42 A&P Assessment and plan (1) (normal spontaneous vaginal delivery): day #1. Patient had been complaining of extreme pain but has since calmed down and her exam is within normal limits. Her fundus is completely nontender. I suspect she was experiencing breast-feeding cramping. She has been educated on what to expect. Routine care Status: Acute Attestations Medical Necessity Statement*: Routine care Coding Level of Care Code Acute Locomotive Switch Operator for Chg Fwd Diagnoses (normal spontaneous vaginal delivery) O80
--- NOTE | 2021-06-03 15:43 | PC.NURSE ---
ambulated to OB11 without difficulty. Oriented to room and call light.
[2021-06-04 04:00] VITALS: BP 100/63; PULSE 56; RESP 18; TEMP 36.6
[2021-06-04] MEDS: acetaminophen 325 mg Tablet 650 MG PO (04:45)
--- NOTE | 2021-06-04 09:38 | P.DS_ITS ---
Discharge Providers Date of Admission: 06/02/21 11:25 Date of Discharge: June 04, 2021 Attending Provider at Admission: Karin Ness MD Attending Provider at Discharge: Karin Ness MD Primary Care Provider: ALEX Shrestha Diagnoses at Discharge Discharge Diagnosis (1) (normal spontaneous vaginal delivery): Status: Acute Reason for Visit Reason for Visit: contractions Hospital Course Hospital Course This is a 21-year-old G1 now P1 who presented to labor and delivery at 37 weeks 6 days gestation in active labor. She had a normal spontaneous vaginal delivery of a viable female infant. She did well . She was ambula ting, tolerating a regular diet, had average vaginal bleeding and was requesting discharge home. Physical Exam Narrative: EXAM NARRATIVE: Sleeping, easily arousable, heart regular rate and rhythm, lungs clear to auscultation bilaterally, abdomen is soft and nontender, fundus is firm and U- 3, positive bowel sounds, no calf tenderness Urinary Catheter Management^: Hair: Cath Placed During This Visit: yes Urinary Catheter Date of Insertion: 06/02/21 Urinary Catheter Time of Insertion: 12:40 Discharge Data Data Completed and Pending: Labs from last 24 hours 06/03/21 06/03/21 11:42 10:34 WBC 17.0 H Cancelled Corrected WBC Cancelled RBC 3.44 L Cancelled Hgb 8.2 L Cancelled Hct 27.7 L Cancelled MCV 80.5 L Cancelled MCH 23.8 L Cancelled MCHC 29.6 L Cancelled RDW 16.5 H Cancelled Plt Count 201 D Cancelled MPV 10.5 H Cancelled Neut % (Auto) 84.7 Lymph % (Auto) 9.9 [place] % (Auto) 4.2 Eos % (Auto) 0.2 Baso % (Auto) 0.1 Neut # (Auto) 14.36 H Lymph # (Auto) 1.7 [place] # (Auto) 0.7 Eos # (Auto) 0.0 Baso # (Auto) 0.0 Nucleated RBC % (a uto) 0.1 Nucleated RBCs # 0.0 Vitals: Last Vital Signs Temp 97.8 F 06/04/21 04:00 Pulse 56 L 06/04/21 04:00 Resp 18 06/04/21 04:00 BP 100/63 06/04/21 04:00 Pulse Ox 99 06/02/21 13:05 Discharge Plan Discharge Patient Disposition: Home Condition: Stable Prescriptions: Continued Prental vitamins (gummies) 1 tab PO DAILY RF: 0 fluoxetine [Prozac] 20 mg capsule 20 mg PO DAILY@0900 Qty: 30 RF: 2 omeprazole 20 mg capsule,delayed release(DR/EC) 20 mg PO DIRECTED RF: 0 Discharge Orders: Discharge Order (Routine); Ordered 06/04/21 Ordered By: Karin Ness Referrals: Karin Ness MD [Physician] - 1 month Discharge Diet: Usual diet Discharge Activity: Limit activity as instructed Patient Instructions: Depression (DC), Expression, Collection and Storage of Breast Milk (DC), Bleeding (DC), Preeclampsia and Eclampsia After Delivery (GEN), OB Discharge Report, OB Food/Drug Interaction Guide, Opioid Safety, OB Home Care, OB Vaginal Deliveries Discharge Attestations Time Spent in Discharge Care*: less than 30 min Quality Metrics Clinical Quality Measures During this hospital stay, did patient experience: None Coding Level of Care Code Acute Chg FW DC note Diagnoses (normal spontaneous vaginal delivery) O80
[2021-06-04 10:00] VITALS: BP 105/60; PULSE 60; RESP 18; TEMP 36.7
[2021-06-04] MEDS: ibuprofen 800 mg tablet PO (10:19)
[2021-06-04] MEDS: docusate sodium 100 mg Capsule PO (10:19)
[2021-06-04] MEDS: prenatal vitamin Capsule 1 CAP PO (10:19)
[2021-06-04] MEDS: fluoxetine 20 mg Capsule PO (10:23)
[2021-06-04 12:00] VITALS: BP 102/59; PULSE 61; RESP 18; TEMP 36.7; O2SAT 98
--- NOTE | 2021-06-04 12:01 | ANE.PACU2 ---
Inpatient post-anesthesia follow up: Airway intact: Yes Vital signs: Temperature 97.8 F Pulse Rate 56 Respiratory Rate 18 Blood Pressure 100/63 Pulse Oximetry 99 Oxygen Delivery Me thod Room Air Oxygen Flow Rate Fraction of Inspir ed Oxygen Hydration adequate: Yes Nausea and vomiting: No Pain level: 2 Mental status: Baseline
== END 2021-06-04 12:00 | disposition home or self-care (01) | DRG 807 ==
LOC: OPOB 11:25 → OBGYN 11:25
PROVIDERS: Admitting Provider Family Medicine; PCP Nurse Practitioner; Visit Provider Family Medicine
DX: O99.334 Smoking (tobacco) complicating childbirth (principal); Z37.0 Single live birth; F17.210 Nicotine dependence, cigarettes, uncomplicated; O99.344 Other mental disorders complicating childbirth; F41.8 Other specified anxiety disorders; F60.89 Other specific personality disorders; O71.4 Obstetric high vaginal laceration alone; Z3A.37 37 weeks gestation of pregnancy; Z23 Encounter for immunization
CPT/HCPCS: 36415; 51702; 59025; 59409; 80306; 81001; 85025; 90471; 90686; 96374; 98960; 99211; J2405; J2795

== ENCOUNTER → 2021-06-29 11:12 | Outpatient (BNVA) | payer MEDICAID, SELFPAY | PROVIDERS: PCP Nurse Practitioner; Visit Provider Psychiatry & Neurology Psychiatry | DX: F43.12 Post-traumatic stress disorder, chronic (principal); F12.10 Cannabis abuse, uncomplicated; F17.200 Nicotine dependence, unspecified, uncomplicated; Z34.90 Encounter for supervision of normal pregnancy, unspecified, unspecified trimester; F10.20 Alcohol dependence, uncomplicated; F33.2 Major depressive disorder, recurrent severe without psychotic features; F41.1 Generalized anxiety disorder; F60.3 Borderline personality disorder | CPT/HCPCS: 99214 ==

== ENCOUNTER → 2021-09-05 13:57 | Outpatient (BNVA) | payer MEDICAID, SELFPAY | PROVIDERS: PCP Nurse Practitioner; Visit Provider Nurse Practitioner | DX: J02.9 Acute pharyngitis, unspecified (principal) | CPT/HCPCS: 87880 ==

== ENCOUNTER → 2021-09-28 15:41 | Outpatient (BNVA) | payer MEDICAID, SELFPAY | PROVIDERS: PCP Nurse Practitioner; Visit Provider Psychiatry & Neurology Psychiatry | DX: F33.2 Major depressive disorder, recurrent severe without psychotic features (principal); F41.1 Generalized anxiety disorder; F60.3 Borderline personality disorder; F17.200 Nicotine dependence, unspecified, uncomplicated | CPT/HCPCS: 99214 ==

== ENCOUNTER 2021-11-24 15:13 | Outpatient (CLI) | payer MEDICAID, SELFPAY ==
--- NOTE | 2021-11-24 | XR_ITS ---
WS: [id number] ABD[facility]EN [facility] CLINICAL INFORMATION: Renal/ureteral calculi. COMPARISON: None. FINDINGS: No visualized renal or ureteral calculi. Mild lumbar curve convex LEFT. 5 nonrib-bearing gerardo mbar vertebral bodies. Normal bowel gas pattern. Scattered air and normal caliber small and large bowel. No significant christian l distention. XR/XR KUB [id number] Impression: No visualized renal or ureteral calculi.
== END 2021-11-24 15:14 | disposition home or self-care (01) ==
LOC: RADOUTREAD 11-25 15:16
PROVIDERS: PCP Nurse Practitioner; Visit Provider Nurse Practitioner
DX: N20.0 Calculus of kidney (principal)
CPT/HCPCS: 74018

== ENCOUNTER 2024-09-19 21:46 | Emergency (ER) | payer SELFPAY ==
[2024-09-19 22:15] VITALS: BP 107/69; PULSE 75; RESP 18; TEMP 36.9; O2SAT 99; BMI 36.8
[2024-09-19 23:05] VITALS: BP 98/53; PULSE 67; RESP 16; O2SAT 98
--- NOTE | 2024-09-19 23:20 | ED_ITS ---
HPI - Female Genitourinary General: Chief complaint: Urogenital-Female Stated complaint: pain in genitals, now has lump Time Seen by Provider: 09/19/24 23:07 Source: patient Mode of arrival: ambulatory Limitations: no limitations History of Present Illness: 24yo female presents with concerns of pa in in her genitals and a lump in her groin area. States the lump has been present for weeks, but started causing some discomfort. Reports the pain isn't at the lump, but is in the genitals. Denies rash, lesions, vaginal discharge, concern for , any other concerns at this time Associated symptoms: Deny abdominal pain, nausea or vaginal discharge Date of Last Menstrual Period: 09/12/24 Related Data Previous Rx's ?Medication ?Instructions ?Recorded bupropion HCl 300 mg 24 hr tablet, 300 mg PO QAM #30 t abs 10/11/23 extended release topiramate 100 mg capsule,extended 100 mg PO DAILY #30 caps 10/11/23 release 24 hr albuterol sulfate 90 mcg/actuation 2 puff inhalation 6 XD PRN 11/28/23 aerosol inhaler (Ventolin HFA) shortness of breath or wheezing #8.5 grams benzonatate 100 mg capsule 100 mg PO TID PRN cough #60 caps 11/28/23 norgestimate 0.18 mg/0.215 mg/0.25 1 tab PO DAILY #84 tabs 12/29/23 mg-ethinyl estradiol 25 mcg tablet (Dfv-Ol-Dmvxjxnq) clindamycin HCl 300 mg capsule 300 mg PO TID 7 days #2 1 caps 01/17/24 fluoxetine 20 mg capsule 60 mg (3 x 20 mg) PO DAILY # 90 caps 02/16/24 ketorolac 10 mg tablet 10 mg PO QID PRN pain 5 days #20 09/19/24 tabs Allergies Allergy/AdvReac Type Severity Reaction Status Date / Time Penicillins Allergy Severe ALGY-Swell Verified 09/19/24 22:15 Lip/Tongue/Throat nutmeg oil (Myristica seed AdvReac Severe ADR-Halluci Verified 09/19/24 22:15 oil) nating Review of Systems Const: Denies: fever(s), chills or body aches GI: Denies: abdominal pain, nausea, vomiting or diarrhea : Reports: other (lump in mons pubis area); Denies: difficulty voiding, dysuria, genital lesions or vaginal discharge PFSH ED PFSH: Medical History Bronchospasm Cluster B personality disorder Recurrent UTI Anxiety and depression Surgical History H/O esophagogastroduodenoscopy (03/03/20) normal Family History Other Bipolar disorder Social History Smoking and tobacco/nicotine status: never used tobacco/nicotine Quit status (tobacco/nicotine): has tried quititng Number of times tried to quit tobacco: 6 Second hand smoke exposure: Yes Alcohol intake: never Substance/Drug Use: current Substance/Drug use frequency: daily Other substance/drug use details: Has card. Adopted: No Caregiver/support person: No Lives independently: Yes Household members: family Housing: House Marital status: Single Number of children: 0 Highest education level completed: High School Graduate service: No Current occupational status: employed Current occupation: [employer] Do you think of yourself as: Straight/Heterosexual Female Reproductive History: Date of last menstrual period: 09/12/24 Para: 0 Spontaneous abortions: Yes (06/22/2019 had total 4 SAB but does not know when <8 weeks) Physical Exam Const: COMMON NORMALS: no acute distress, patient oriented x3, healthy appearing and alert GENERAL APPEARANCE: cooperative ORIENTATION/CONSCIOUSNESS: Yes awake OTHER: Patient is ambulatory to the exam room unassisted. She is sitting upright on the stretcher no acute distress. She is interactive with exam appropriately. No family at bedside HENMT: COMMON NORMALS: normocephalic and atraumatic HEAD & SCALP: normocephalic and atraumatic Eye: GENERAL EYE: appearance normal, both eyes and all related structures Neck/C-Spine: COMMON NORMALS: full ROM Resp: COMMON NORMALS: normal respiratory effort and No use of accessory muscles : EXTERNAL FEMALE EXAM: Yes other (nontender pea size moveable lump to the left mons pubis) Extremity: COMMON NORMALS: full ROM Neuro: COMMON NORMALS: patient oriented x3 SENSORIUM/ORIENTATION: Yes alert Psych: COMMON NORMALS: cooperative ATTITUDE: Yes calm Course Vital Signs: Vital signs: Vital Signs Temperature 98.5 F 09/19/24 22:15 Pulse Rate 67 09/19/24 23:05 Respiratory Rate 16 09/19/24 23:05 Blood Pressure 98/53 09/19/24 23:05 Pulse Oximetry 98 09/19/24 23:05 Oxygen Delivery Me thod Room Air 09/19/24 23:05 MDM - Female Medical Decision Making 24yo female presents with concerns of pain in her genitals and a lump in her groin area. States the lump has been present for weeks, but started causing some discomfort. Reports the pain isn't at the lump, but is in the genitals. Denies rash, lesions, vaginal discharge, concern for , any other concerns at this time. Patient is nontoxic in appearance. Vital signs are stable. Discussed with patient the nontender movable pea-sized lump is likely an enlarged hair follicle. UA with 1+ bacteria, otherwise unremarkable. Wet prep unremarkable. GC/chlamydia pending. Discussed findings with patient. A referral was placed to [facility] for patient to have a well woman. Recommend she follow-up as soon as possible. Return precautions provided. Patient states understanding and has no further questions or concerns at this time. Lab Data I reviewed the patient's lab results. Laboratory Results Urine Color Dark yellow (Yellow) A 09/19/24 23:26 Urine Appearance Clear (CLEAR) 09/19/24 23:26 Urine pH 6.0 (5-7) 09/19/24 23:26 Ur Specific [place] 1.037 (1.005-1.030) H 09/19/24 23:26 Urine Protein 1+ (Negative) A 09/19/24 23:26 Urine Glucose (UA) Negative (Normal) 09/19/24 23:26 Urine Ketones Trace (Negative) 09/19/24 23: Urine Blood Negative (Negative) 09/19/24 23: Urine Nitrate Negative (Negative) 09/19/24 23:26 Urine Bilirubin Negative (Negative) 09/19/24 23:26 Urine Urobilinogen 1.0 mg/dL (Negative) 09/19/24 23:26 Ur Leukocyte Esterase Trace (Negative) A 09/19/24 23:26 Urine RBC 0-2 /hpf (0-2) 09/19/24 23:26 Urine WBC 0-5 /hpf (0-5) 09/19/24 23:26 Ur Squamous Epith Cells 6-10 /hpf (0-5) 09/19/24 23:26 Amorphous Sediment Not Reportable 09/19/24 23:26 Urine Bacteria 1+ /hpf (NONE) H 09/19/24 23:26 Hyaline Casts 2.05 /lpf 09/19/24 23:26 No radiology studies performed this visit Discharge Plan Discharge Patient Disposition: Home Clinical Impression: Subcutaneous cyst Condition: Stable Prescriptions: New ketorolac 10 mg tablet 10 mg PO QID PRN (Reason: pain) 5 Days Qty: 20 0RF No Action albuterol sulfate [Ventolin HFA] 90 mcg/actuation HFA aerosol inhaler 2 puff inhalation 6XD PRN (Reason: shortness of breath or wheezing) Qty: 8.5 11RF benzonatate 100 mg capsule 100 mg PO TID PRN (Reason: cough) Qty: 60 0RF norgestimate-ethinyl estradiol [Obw-Dm-Fdjzhpxc] 0.18/0.215/0.25 mg-25 mcg tablet 1 tab PO DAILY Qty: 84 4RF clindamycin HCl 300 mg capsule 300 mg PO TID 7 Days Qty: 21 0RF bupropion HCl 300 mg tablet extended release 24 hr 300 mg PO QAM Qty: 30 3RF topiramate 100 mg capsule,extended release 24hr 100 mg PO DAILY Qty: 30 3RF fluoxetine 20 mg capsule 60 mg PO DAILY Qty: 90 2RF Discharge Orders: Discharge ED (Routine); Ordered 09/19/24 Ordered By: Jakob Lopez Referrals: Ana Perera MD [Primary Care Provider] - Discharge Diet: Usual diet Discharge Activity: Resume usual activity Print Language: Cook Islander Coding Level of Care Code ED Camera Mechanic for [facility] Osw[facility]
[2024-09-19 23:35] LABS: Bilirubin Urine Negative (Negative); Blood Urine Negative (Negative); Glucose Urine UA Negative (Normal); Ketones Urine Trace (Negative); Leukocyte Esterase Urine Trace (Negative); Nitrate Urine Negative (Negative); Protein Urine 1+ (Negative); Urine Appearance Clear (CLEAR); Urine Color Dark Yellow (Yellow)
[2024-09-19 23:40] LABS: Add Urine Microscopic? YES; Bacteria Urine 1+ /hpf; Hyaline Casts Urine 2.05 /lpf; RBC Urine 0-2 /hpf (0-2); WBC Urine 0-5 /hpf (0-5)
[2024-09-19 23:43] LABS: Specific Gravity, Urine 1.037 (1.005-1.030)
[2024-09-20] MEDS: ketorolac 10 mg Tablet PO (00:15)
[2024-09-20 00:19] VITALS: BP 104/45; PULSE 58; RESP 16; O2SAT 98
[2024-09-20 01:04] LABS: Neisseria Gonorrhea NOT DETECTED
[2024-09-20 02:44] LABS: Chlamydia Trachomatis NOT DETECTED
== END 2024-09-20 00:20 | disposition home or self-care (01) ==
PROVIDERS: Emergency Provider Nurse Practitioner; PCP Family Medicine
DX: B43.2 Subcutaneous pheomycotic abscess and cyst (principal); Z87.891 Personal history of nicotine dependence
CPT/HCPCS: 81001; 87210; 87491; 87591; 99283; J9999

== ENCOUNTER → 2024-10-04 18:57 | Outpatient (BNVA) | payer MEDICAID, SELFPAY | PROVIDERS: PCP Family Medicine; Visit Provider Registered Nurse Neonatal Intensive Care | DX: N39.0 Urinary tract infection, site not specified (principal) | CPT/HCPCS: 81000 ==

== ENCOUNTER 2024-10-20 08:02 | Emergency (ER) | payer MEDICAID, SELFPAY ==
--- NOTE | 2024-10-20 08:05 | ECG_ITS ---
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
[2024-10-20 08:14] VITALS: BP 122/71; PULSE 56; RESP 18; TEMP 36.6; O2SAT 99; BMI 38.0
--- NOTE | 2024-10-20 08:21 | ED_ITS ---
HPI - Dizziness 2 General: Chief Complaint: Dizziness Stated Complaint: rapid heartbeat, dizziness Time Seen by Provider: 10/20/24 08:06 Source: patient Mode of arrival: ambulatory Limitations: no limitations History of Present Illness: HPI Narrative: 24-year-old female states that she has b een having some dizziness feeling like the room spinning while nausea. She states she felt like her heart was racing heart rate was up but is in the 50s here. States that dizziness is slightly worse with movement very minimal at rest denies any weakness slurred speech or headache Associated symptoms: Reports nausea and palpitations; Denies chest pain, chills, headache(s) or vomiting Related Data Home Medications ?Medication ?Instructions ?Recorded ?Confirmed ibuprofen 200 mg tablet (Advil) 800 mg PO Q6H PRN Feve r Or Pain 10/20/24 10/20/24 Previous Rx's ?Medication ?Instructions ?Recorded meclizine 50 mg tablet 50 mg PO BID PRN dizziness # 30 tabs 10/20/24 ondansetron 4 mg disintegrating 4 mg PO Q6H PRN nausea and 10/20/24 tablet vomiting #14 tabs Allergies Allergy/AdvReac Type Severity Reaction Status Date / Time Penicillins Allergy Severe ALGY-Swell Verified 10/04/24 18:38 Lip/Tongue/Throat nutmeg oil (Myristica seed AdvReac Severe ADR-Halluci Verified 10/04/24 18:38 oil) nating Review of Systems 2 Const: Denies: fever(s), chills, body aches or change in appetite ENMT: Denies: throat pain or dental pain Card: Reports: palpitations; Denies: chest pain Resp: Denies: dyspnea GI: Reports: nausea; Denies: abdominal pain, vomiting or diarrhea Musc: Denies: neck pain or back pain Skin/Breast: Denies: rash Neuro: Reports: dizziness; Denies: headache(s) PFSH ED 2 PFSH: Medical History Bronchospasm Cluster B personality disorder Recurrent UTI Anxiety and depression Surgical History H/O esophagogastroduodenoscopy (03/03/20) normal Family History Other Bipolar disorder Social History Smoking and tobacco/nicotine status: current every day tobacco/nicotine user cigarettes Packs smoked per day: 0.25 Years cigarettes smoked: 4 Quit status (tobacco/nicotine): has tried quititng Number of times tried to quit tobacco: 6 Second hand smoke exposure: Yes Alcohol intake: never Substance/Drug Use: current Substance/Drug use frequency: daily Other substance/drug use details: Has card. Adopted: No Caregiver/support person: No Lives independently: Yes Household members: family Housing: House Marital status: Single Number of children: 0 Highest education level completed: High School Graduate service: No Current occupational status: employed Current occupation: [employer] Do you think of yourself as: Straight/Heterosexual Female Reproductive History: Para: 0 Spontaneous abortions: Yes (06/22/2019 had total 4 SAB but does not know when <8 weeks) Physical Exam 2 Const: COMMON NORMALS: no acute distress, patient oriented x3 and healthy appearing HENMT: COMMON NORMALS: normocephalic and atraumatic HEAD & SCALP: n ormocephalic and atraumatic Eye: COMMON NORMALS: conjunctivae normal CONJUNCTIVA: Yes conjunctivae normal Neck/C-Spine: COMMON NORMALS: full ROM and supple Chest: COMMONS NORMALS: normal inspection of the chest Resp: COMMON NORMALS: normal respiratory effort, No retractions, No use of accessory muscles and clear to auscultation bilaterally AUSCULTATION: clear to auscultation bilaterally Cardio: COMMON NORMALS: regular rate, regular rhythm and No murmurs present (Cardio) RATE: regular rate RHYTHM: regular rhythm Extremity: COMMON NORMALS: normal to inspection and full ROM Neuro: COMMON NORMALS: patient oriented x3, moves all extremities and no focal motor deficits SPEECH: speech normal GAIT: Yes Normal gait present M OTOR EXAM: 5/5 motor strength present throughout OTHER: no nystagmus Psych: COMMON NORMALS: mental status grossly normal, Normal thought process present and cooperative THOUGHT PROCESS: Normal thought process present Skin: COMMON NORMALS: no rashes or lesions noted and no wounds GENERAL SKIN EXAM: no rashes or lesions noted Course 2 Vital Signs: Vital signs: Vital Signs Temperature 97.9 F 10/20/24 08:14 Pulse Rate 61 04/27/25 11:19 Respiratory Rate 16 10/20/24 08:56 Blood Pressure 119/84 10/20/24 11:19 Pulse Oximetry 100 10/20/24 11:19 Oxygen Delivery Me thod Room Air 10/20/24 11:05 MDM - Dizziness Medical Decision Making Patient presents for vertigo along with nausea she feels much improved after meclizine and Zofran fluids she is ambulatory here no signs of a stroke she stable for discharge follow-up PCP return if worsening. Medical Records I reviewed the patient's medical records. Lab Data I reviewed the patient's lab results. 10/20/24 08:15 10/20/24 08:[address] 10/20/24 09:11 IMPRESSION: No acute intracranial abnormality. Laboratory Results WBC 8.34 10^3/uL (3.29-11.43) 10/20/24 08:15 RBC 4.26 10^6/uL (3.85-5.65) 10/20/24 08:15 Hgb 12.50 g/dL (11.27-16.99) 10/20/24 08:15 Hct 39.7 % (36-47) 10/20/24 08:15 MCV 93.2 fl (85-98) 10/20/24 08:15 MCH 29.3 pg (27-33) 10/20/24 08:15 MCHC 31.5 g/dL (30-55) 10/20/24 08:15 RDW 13.2 % (12.1-15.1) 10/20/24 08:15 Plt Count 245 10^3/cmm (157-399) 10/20/24 08:15 MPV 9.9 fL (7.4-10.4) 10/20/24 08:15 Neut % (Auto) 54.5 % 10/20/24 08:15 Lymph % (Auto) 34.4 % 10/20/24 08:15 [place] % (Auto) 7.3 % 10/20/24 08:15 Eos % (Auto) 3.2 % 10/20/24 08:15 Baso % (Auto) 0.4 % 10/20/24 08:15 Neut # (Auto) 4.54 10^3/uL (1.8-7.7) 10/20/24 08:15 Lymph # (Auto) 2.9 10^3/uL (0.8-4.8) 10/20/24 08:15 [place] # (Auto) 0.6 10^3/uL (0.2-0.9) 10/20/24 08:15 Eos # (Auto) 0.3 10^3/uL (0.0-0.8) 10/20/24 08:15 Baso # (Auto) 0.0 10^3/uL (0.0-0.1) 10/20/24 08:15 Nucleated RBC % (auto) 0 % 10/20/24 08:15 Nucleated RBCs # 0.0 /100WBC 10/20/24 08:15 Sodium 136 mmol/L (136-145) 10/20/24 08:15 Potassium 4.4 mmol/L (3.5-5.1) 10/20/24 08:15 Chloride 102 mmol/L (98-107) 10/20/24 08:15 Carbon Dioxide 24 mmol/L (22-29) 10/20/24 08:15 Anion Gap 14.4 (5-19) 10/20/24 08:15 BUN 15 mg/dL (6-20) 10/20/24 08:15 Creatinine 0.8 mg/dL (0.5-0.9) 10/20/24 08:15 GFR Calculation 88.9 mL/min (90-130) L 10/20/24 08:15 Glucose 92 mg/dL (65-115) 10/20/24 08:15 Calculated Osmolality 282 mOsm/kg (285-295) L 10/20/24 08:15 Calcium 9.3 mg/dL (8.5-10.5) 10/20/24 08:15 Total Bilirubin 0.3 mg/dL (0.15-1.2) 10/20/24 08:15 AST 16 U/L (0-32) 10/20/24 08:15 ALT 14 U/L (0-33) 10/20/24 08:15 Alkaline Phosphatase 71 U/L (35-105) 10/20/24 08:15 Total Protein 6.9 g/dL (6.6-8.7) 10/20/24 08:15 Albumin 4.2 g/dL (3.5-5.2) 10/20/24 08:15 Globulin 2.7 g/dL (1.3-4.6) 10/20/24 08:15 HCG, Qual Negative (Negative) 10/20/24 08:15 All radiology interpretation(s) finalized by discharge EKG Data EKG 1: I personally reviewed and interpreted this EKG as follows: EKG interpretation date: 10/20/24 EKG interpretation time: 08:21 Interpretation: sinus fer hr [address] or twave abnormalities qrs 102 [id number] Discharge Plan Discharge Patient Disposition: Home Clinical Impression: Vertigo, Nausea Condition: Stable Prescriptions: New ondansetron 4 mg tablet,disintegrating 4 mg PO Q6H PRN (Reason: nausea and vomiting) Qty: 14 0RF meclizine 50 mg tablet 50 mg PO BID PRN (Reason: dizziness) Qty: 30 0RF No Action ibuprofen [Advil] 200 mg Tablet 800 mg PO Q6H PRN (Reason: Fever Or Pain) Discharge Orders: Discharge ED (Routine); Ordered 10/20/24 Ordered By: Wei Garcia Referrals: Ana Perera MD [Primary Care Provider] - Discharge Diet: Advance as tolerated Discharge Activity: Resume usual activity Patient Instructions: Vertigo (ED), Acute Nausea and Vomiting (ED) Print Language: Macanese Coding Level of Care Code ED Regional Environmental Manager for [facility]
[2024-10-20 08:23] LABS: Basophils % 0.4 %; Eosinophils # 0.3 10^3/uL (0.0-0.8); Eosinophils % 3.2 %; Hematocrit 39.7 % (36-47); Lymphocytes # 2.9 10^3/uL (0.8-4.8); Lymphocytes % 34.4 %; Mean Corpuscular HGB Conc 31.5 g/dL (30-55); Mean Corpuscular Hemoglobin 29.3 pg (27-33); Mean Corpuscular Volume 93.2 fl (85-98); Mean Platelet Volume 9.9 fL (7.4-10.4); Monocytes # 0.6 10^3/uL (0.2-0.9); Monocytes % 7.3 %; Neutrophils # 4.54 10^3/uL (1.8-7.7); Neutrophils % 54.5 %; Nucleated Red Blood Cells % 0 %; Platelet Count 245 10^3/cmm (157-399); Red Blood Count 4.26 10^6/uL (3.85-5.65); Red Cell Distribution Width 13.2 % (12.1-15.1); White Blood Count 8.34 10^3/uL (3.29-11.43)
[2024-10-20 08:25] VITALS: BP 122/71; PULSE 57; RESP 16; O2SAT 100
[2024-10-20] MEDS: ondansetron 4 MG Tablet PO (08:31)
[2024-10-20] MEDS: meclizine 25 mg tablet 50 MG PO (08:31)
[2024-10-20 08:34] LABS: HCG, Serum Qual Negative (Negative)
[2024-10-20 08:37] LABS: Alanine Aminotransferase 14 U/L (0-33); Albumin Level 4.2 g/dL (3.5-5.2); Alkaline Phosphatase 71 U/L (35-105); Anion Gap 14.4 (5-19); Aspartate Amino Transferase 16 U/L (0-32); Blood Urea Nitrogen 15 mg/dL (6-20); Calcium 9.3 mg/dL (8.5-10.5); Carbon Dioxide 24 mmol/L (22-29); Chloride 102 mmol/L (98-107); Creatinine Clr Calc Pharmacy 121.6343; Globulin 2.7 g/dL (1.3-4.6); Glomerular Filtration Rate 88.9 mL/min (90-130); Glucose 92 mg/dL (65-115); Osmolality Calculated 282 mOsm/kg (285-295); Potassium 4.4 mmol/L (3.5-5.1); Sodium 136 mmol/L (136-145); Total Bilirubin 0.3 mg/dL (0.15-1.2); Total Protein 6.9 g/dL (6.6-8.7)
[2024-10-20 08:56] VITALS: BP 109/69; PULSE 53; RESP 16; O2SAT 98
--- NOTE | 2024-10-20 09:11 | CTR_ITS ---
PROCEDURE INFORMATION: Exam: CT Head Without Contrast Exam date and time: 10/20/2024 9:36 AM Age: 24 years old Clinical indication: Dizziness; Seizure Monday TECHNIQUE: Imaging protocol: Computed tomography of the head without contrast. Radiation optimization: All CT scans at this facility use at least one of these dose optimization techniques: automated exposure control; mA and/or kV adjustment per patient size (includes targeted exams where dose is matched to clinical indication); or iterative reconstruction. COMPARISON: CT head wo con* [id number] 10/28/2019 8:35 AM RADIATION DOSE METRICS: Total DLP (mGy-cm): 1053.58 FINDINGS: Brain: Normal. No hemorrhage. Unremarkable white matter. No mass effect. No structural seizure focus identified. Ventricles: No hydrocephalus or evidence of increased intracranial pressure. Paranasal sinuses: Visualized sinuses are unremarkable. No fluid levels. Mastoid air cells: Visualized mastoid air cells are well aerated. Bones: Unremarkable. No acute fracture. Soft tissues: Unremarkable. CT/CT head wo con* [id number] IMPRESSION: No acute intracranial abnormality.
[2024-10-20] MEDS: sodium chloride 0.9% 1,000 ML 999 ML IV (10:15)
[2024-10-20] MEDS: ondansetron 2 mg/ML SDV 2 mL 4 MG IVP (10:17)
[2024-10-20 10:18] VITALS: BP 105/65; PULSE 52; O2SAT 100
[2024-10-20 11:05] VITALS: BP 100/68; PULSE 54; O2SAT 100
[2024-10-20 11:19] VITALS: BP 119/84; PULSE 61; O2SAT 100
== END 2024-10-20 11:15 | disposition home or self-care (01) ==
PROVIDERS: Emergency Provider Emergency Medicine; PCP Family Medicine
DX: R42 Dizziness and giddiness (principal); R11.0 Nausea; F17.210 Nicotine dependence, cigarettes, uncomplicated
CPT/HCPCS: 70450; 80053; 84703; 85025; 93005; 96361; 96374; 99285; J2405; J7030; J8597; Q0162

== ENCOUNTER → 2024-10-28 08:43 | Outpatient (BNVA) | payer MEDICAID, SELFPAY | PROVIDERS: PCP Family Medicine | DX: S99.922A Unspecified injury of left foot, initial encounter (principal); M20.12 Hallux valgus (acquired), left foot; X58.XXXA Exposure to other specified factors, initial encounter | CPT/HCPCS: 73630 ==

== ENCOUNTER 2024-11-15 16:05 | Outpatient (CLI) | payer MEDICAID, SELFPAY ==
--- NOTE | 2024-11-15 16:12 | US_ITS ---
WS: [id number] US pelvic complete* [id number] HISTORY: LT INGUINAL PAIN COMPARISON: 03/09/2018 Uterus: 9.9 cm x 4.5 cm x 3.9 cm. Normal size anteverted uterus. No fibroid or mass. Endometrium: 1.1 cm. Normal. Right ovary: 3.6 cm x 3.0 cm x 2.8 cm. Size ovary with a small dominant follicle. Follicle measures 2.3 x 2.2 x 1.6 cm. Normal vascularity RIGHT ovary. Left ovary: 3.6 cm x 2.6 cm x 2.5 cm. Normal size and vascularity, no cystic or solid masses. No free fluid in the cul-de-sac. There is a small tiny fluid collection in the subcutaneous soft tissues labeled pelvis. This is a subcutaneous collection measuring 0.9 x 0.9 x 0.5 cm. This may be a small epidermoid or sebaceous cyst based upon its location and appearance. US/US pelvic complete* [id number] IMPRESSION: 1. Small complex collection labeled LEFT pelvis. Location is otherwise not ind icated by the expeller worker. Suspect this is probably a small epidermoid or sebac eous cyst. 2. Remaining pelvis is negative.
== END 2024-11-15 16:06 | disposition home or self-care (01) ==
LOC: RAD 16:07
PROVIDERS: PCP Family Medicine; Visit Provider Family Medicine
DX: R10.32 Left lower quadrant pain (principal); R10.2 Pelvic and perineal pain
CPT/HCPCS: 76856

== ENCOUNTER → 2024-12-31 17:13 | Outpatient (BNVA) | payer MEDICAID, SELFPAY | PROVIDERS: PCP Family Medicine; Visit Provider Physician Assistant | DX: J02.9 Acute pharyngitis, unspecified (principal) | CPT/HCPCS: 87880 ==

== ENCOUNTER 2025-01-24 16:05 | Outpatient (CLI) | payer MEDICAID, SELFPAY ==
--- NOTE | 2025-01-24 16:00 | MR_ITS ---
WS: [email or web address] MRI BRAIN WITH AND WITHOUT CONTRAST HISTORY: R56.9 - Unspecified convulsions COMPARISON: None available. TECHNIQUE: Multiplanar imaging performed through the brain with MultiHance 20 ml's IV. No acute infarcts are seen. Yuan-white matter differentiation is well preserved. No susceptibility artifacts or prior lacunar infarcts. Ventricles and extra-axial spaces are normal. Seen only on the postcontrast MPR batch sequence are areas of decreased enhancement in the sella turcica which may represent small pituitary microadenomas. These areas of decreased enhancement are not seen on all sequences. Very mild Chiari I malformation. Cerebellar tonsils extend 5.3 mm below the foramen magnum and are pointed. Mild crowding of the foramen magnum. No hydrocephalus. Fourth ventricle is normal. Visualized upper cervical spine demonstrates no abnormality. Postcontrast images are negative for masses or vascular malformations. Dural venous sinuses are normal. Paranasal sinuses: Small mucous retention cyst in the RIGHT maxillary sinus. Mastoid air cells: Normal. Calvarium and scalp: Normal. MR/MR head wo/w con [id number] IMPRESSION: 1. No acute hemorrhage, enhancing mass or edema. 2. Mild Chiari malformation suspected. Cerebellar tonsils are slightly pointed extending 5.3 mm below the foramen magnum. On the CT of 10/20/2024 the descent of the tonsils was less and more likely ectopia. Recommend follow-up cervical s pine MRI with and without contrast to evaluate for syrinx and to reevaluate the extent of a Chiari malformation versus ectopia. 3. Areas of decreased enhancement in the sella turcica seen only on a few sequ ences. Pituitary microadenomas suspected. Recommend follow-up dedicated MRI pit uitary gland.
[2025-01-24] MEDS: gadobenate dimeglumine 20 mL vial IV (16:52)
[2025-01-24 17:54] LABS: Free T4 Free Thyroxine 1.14 ng/dL (0.82-1.77); Magnesium 2.1 mg/dL (1.7-2.3); Thyroid Stimulating Hormone 1.45 uIU/mL (0.27-4.20)
[2025-01-24 19:19] LABS: Vitamin B12 404 pg/mL (232-1245)
== END 2025-01-24 16:06 | disposition home or self-care (01) ==
LOC: RAD 16:06
PROVIDERS: PCP Family Medicine; Visit Provider Psychiatry & Neurology Neurology
DX: G40.909 Epilepsy, unspecified, not intractable, without status epilepticus (principal); F41.9 Anxiety disorder, unspecified; F32.9 Major depressive disorder, single episode, unspecified; R94.02 Abnormal brain scan
CPT/HCPCS: 36415; 70553; 82306; 82607; 82746; 83735; 83921; 84207; 84439; 84443; 84591; A9577

== ENCOUNTER 2025-01-28 14:39 | Emergency (ER) | payer MEDICAID, SELFPAY ==
--- NOTE | 2025-01-28 14:40 | ECG_ITS ---
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 Measurements Intervals [place] Rate: 54 P: 9 MN: 189 QRS: -10 QRSD: 103 T: 29 QT: 415 QTc: 393 Interpretive Statements SINUS BRADYCARDIA Non diagnostic T wave changes Compared to ECG 10/20/2024 08:21:10 Sinus arrhythmia no longer present First degree AV block no longer present Electronically Signed On 01-28-2025 22:58:54 CDT by Nilsa Basurto M.D. [email or web address]
[2025-01-28 14:41] VITALS: BP 108/71; PULSE 54; RESP 16; TEMP 36.8; O2SAT 98; BMI 37.2
--- OUTSIDE RECORDS SUMMARY | 2025-01-28 14:49 | XMS_ITS | Patient Health Record ---
Author Organization [facility] Address [address] [place] [address] Care Team Providers Care Area Field Worker Name Role Phone No Primary, Care Provider Primary Care Provider Unavailable Nonbillable, Nurse Unavailable Unavailable Allergies Allergen (clinical drug ingredient) Drug/Non Drug Allergy documented on EMR Reaction Allergy Type Onset Date Status Penicillin anaphylaxis Drug Allergy Acti ve Reason For Referral No Information Medications Medication SIG (Take, Route, Frequency, Duration) Notes Start Date End Date Status Victoza 18 MG/3ML Solution Pen-injector 1.2 mgs daily Subcutaneous; Duration: 90 days 03/20/2023 Active Topiramate 100 MG Tablet 1 tablet, drink 1/2 gallon of water before 4pm Orally nighlty; Duration: 90 days 01/16/2023 Active Progesterone 100 MG Capsule 1 capsule at bedtime for 10 days from day 14 of menstural period Orally Once a day; Duration: 90 days 01/16/2023 Active buPROPion HCl ER (XL) 300 MG Tablet Extended Release 24 Hour 1 tablet in the morning Orally Once a day; Duration: 90 days 01/16/2023 Active FLUoxetine HCl 20 MG Capsule 1 capsule Orally Once a day; Duration: 90 days Active Social History Tobacco Use: Social History Observation Description Date Details (start date - stop date) Current Smoker NA - NA Sex Assigned At : Social History Observation Description Sex Assigned At Female Social History Gender Identity Social Info Question Answer Notes Gender Identity: Current Gender Identity: Woman/Girl Sex Assigned at : Female Preferred Pronouns: She/Her/Hers Sexual History: Social Info Question Answer Notes Sexual History Had sex in the past 12 months (vaginal, oral, or anal)? Yes Drugs/Alcohol: Social Info Question Answer Notes Alcohol Screen (Audit-C) Did you have a drink containing alcohol in the past year? No Points 0 Interpretation Negative Drugs Have you used drugs other than those for medical reasons in the past 12 months? Yes Marijuana? Yes Caffeine Intake: 1-2 cups per day Tobacco Use: Social Info Question Answer Notes Tobacco Use/Smoking Are you a current smoker How often do you smoke cigarettes? every day How many cigarettes a day do you smoke? 11-20 How soon after you wake up do you smoke your first cigarette? 6-30 minutes Tobacco use other than smoking: Are you an other tobac co user? No Additional Details Category Social Info Options Details Drugs/Alcohol: Do you smoke marijuana? Ad mits Do you drink alcohol? No Problems Problem Type SNOMED Code ICD Code Onset Dates Problem Status W/U Status Risk Notes Problem Borderline personality disorder () Borderline personality disorder (F60.3) Active confirmed Problem Insomnia (982778227) Other insomnia (G47.09) Active confirmed Problem Obesity (429467530) Obesity (BMI 30-39.9) (E66.9) Active confirmed Problem Metabolic screening test (391714150) Screening for metabolic disorder (Z13.228) Active confirmed Problem Mixed anxiety and depressive disorder (310526253) Depression with anxiety (F41.8) Active confirmed Problem Excessive and frequent menstruation (046044016) Menorrhagia with regular cycle (N92.0) Active confirmed Problem Morbid obesity (219570273) Morbid obesity due to excess calories (E66.01) Active confirmed Problem Daytime somnolence (458242925593) Excessive daytime sleepiness (G47.19) Active confirmed Plan Of Treatment Future Test Test Name Order Date CHLAM/GC, AMP. DNA 08/03/2022 VITAMIN B12 08/03/2022 CBC WITH DIFF 08/03/2022 VIT D, 25-HYDROXY 08/03/2022 HGB A1C W/EAG 08/03/2022 FOLATE 08/03/2022 HEP. B SURF. Ag 08/03/2022 HEP. C Ab 08/03/2022 HOMOCYSTEINE 08/03/2022 TSH REFLEX TO FREE T4 08/03/2022 MICROALBUMIN RATIO 08/03/2022 URIC ACID 08/03/2022 MAGNESIUM 08/03/2022 LIPID CHEMPANEL 08/03/2022 COMP. METABOLIC PANEL 08/03/2022 HIV Ag Ab Combo 08/03/2022 Insurance Providers Payer Name Payer Address Payer Phone Subscriber Number Group Number Insured Name Patient Relationship to Insured Coverage Start Date Coverage End Date [facility] [employer] [facility] [address] [place] [phone] [id number] Conchita Cancino Self - patient is the insured 3 3 [employer] [address] [place] [address] [id number] Conchita Cancino Self - patient is the insured 4 Medical (General) History Medical History History ICD Code Anxiety Depression Surgical History Surgery Date(Month/Year) Past Surgical History was re quested of patient but none was remarked.
--- NOTE | 2025-01-28 15:23 | ED_ITS ---
HPI - Seizure 2 General: Chief Complaint: Seizure Stated Complaint: POSSIBLE SEIZURE Time Seen by Provider: 01/28/25 14:40 History of Present Illness: HPI Narrative: 24-year-old female presents emergency ro om reporting seizures. Patient states she has had several seizures recently. She has seen neurology they felt these are functional neurologic events and she is not on any antiseizure medications she is being referred for further evaluation. Did not strike her head with this episode. She had a seizure yesterday as well. She can remember the events fairly well. Associated symptoms: Deny chest pain, chills or fever(s) Related Data Home Medications ?Medication ?Instructions ?Recorded ?Confirmed ibuprofen 200 mg tablet (Advil) 800 mg PO Q6H PRN Feve r Or Pain 10/20/24 01/28/25 bupropion HCl 150 mg 24 hr tablet, 150 mg PO DAILY 02/1701/28/25 extended release fluoxetine 20 mg tablet 20 mg PO DAILY 12/31/2411/17 medroxyprogesterone 150 mg/mL 150 mg IM Q90D 12/31/24 01/28/25 intramuscular syringe loperamide 2 mg capsule 2 mg PO Q6H PRN Diarrhea 11/1701/28/25 Previous Rx's ?Medication ?Instructions ?Recorded thiamine HCl (vitamin B1) 100 mg 100 mg PO DAILY 30 da ys #30 tabs 01/16/25 tablet ergocalciferol (vitamin D2) 1,250 1,250 mcg PO Q7D 3 m onths #13 caps 01/27/25 mcg (50,000 unit) capsule Allergies Allergy/AdvReac Type Severity Reaction Status Date / Time Penicillins Allergy Severe ALGY-Swell Verified 01/28/25 14:50 Lip/Tongue/Throat nutmeg oil (Myristica seed AdvReac Severe ADR-Halluci Verified 01/28/25 14:50 oil) nating Review of Systems 2 Const: Denies: fever(s) or chills Card: Denies: chest pain Resp: Denies: dyspnea GI: Denies: abdominal pain : Denies: dysuria, urinary frequency or urinary urgency Musc: Denies: neck pain or back pain Skin/Breast: Denies: rash PFSH ED 2 PFSH: Medical History Injury of foot including toes Bronchospasm Cluster B personality disorder Recurrent UTI Anxiety and depression Surgical History H/O esophagogastroduodenoscopy (03/03/20) normal Family History Other Bipolar disorder Social History Smoking and tobacco/nicotine status: current every day tobacco/nicotine user Quit status (tobacco/nicotine): has tried quititng Number of times tried to quit tobacco: 6 Second hand smoke exposure: Yes Alcohol intake: never Substance/Drug Use: current Substance/Drug use frequency: daily Other substance/drug use details: Has card. Adopted: No Caregiver/support person: No Lives independently: Yes Household members: family Housing: House Marital status: Single Number of children: 0 Highest education level completed: High School Graduate service: No Current occupational status: employed Current occupation: [employer] Do you think of yourself as: Straight/Heterosexual Female Reproductive History: Para: 0 Spontaneous abortions: Yes (06/22/2019 had total 4 SAB but does not know when <8 weeks) Physical Exam 2 Const: GENERAL APPEARANCE: cooperative ORIENTATION/CONSCIOUSNESS: Yes awake, Yes oriented to person, Yes oriented to place and Yes oriented to time HENMT: COMMON NORMALS: normocephalic, atraumatic and hearing grossly normal bilaterally HEAD & SCALP: normocephalic and atraumatic Resp: COMMON NORMALS: normal respiratory effort, No retractions, No use of accessory muscles and clear to auscultation bilaterally AUSCULTATION: clear to auscultation bilaterally Cardio: COMMON NORMALS: regular rate, regular rhythm and No murmurs present (Cardio) RATE: regular rate RHYTHM: regular rhythm GI: COMMON NORMALS: Soft to palpation and No hepatosplenomegaly present A USCULTATION: Yes normoactive bowel sounds PALPATION: Yes Soft to palpation, No Tenderness to palpation present (GI), No Guarding due to palpation present (GI) and Yes No hepatosplenomegaly present Extremity: COMMON NORMALS: normal to inspection, capillary refill normal, no clubbing, cyanosis or edema, no calf tenderness and no pedal edema Neuro: SENSORIUM/ORIENTATION: Yes oriented to person, Yes oriented to place and Yes oriented to time Skin: COMMON NORMALS: no rashes or lesions noted GENERAL SKIN EXAM: no rashes or lesions noted Course 2 Vital Signs: Vital signs: Vital Signs Temperature 98.2 F 01/28/25 14:41 Pulse Rate 64 01/28/25 16:30 Respiratory Rate 16 01/28/25 16:30 Blood Pressure 98/57 01/28/25 16:30 Pulse Oximetry 100 01/28/25 16:30 MDM - Seizure MDM Narrative Medical decision making narrative: Patient did have some hematuria however she is currently having them. She not having any urinary tract symptoms. Boyfriend showed me a video taken of 1 of these events that does not appear to be a true seizure. Suspect as Dr. Danielle it documented that she thinks this may be a functional neurologic episode. Discussed this with the patient for now would recommend not starting any medications getting the EEG like Dr. Roberts had ordered so that he can have an EEG done without any medicines in the background. Follow-up with Dr. Roberts. At this time there is no emergent conditions present. Lab Data 01/28/25 15:45 01/28/25 15:45 Labs: Laboratory Results WBC 7.47 10^3/uL (3.29-11.43) 01/28/25 15:45 RBC 4.24 10^6/uL (3.85-5.65) 01/28/25 15:45 Hgb 12.30 g/dL (11.27-16.99) 01/28/25 15:45 Hct 37.8 % (36-47) 01/28/25 15:45 MCV 89.2 fl (85-98) 01/28/25 15:45 MCH 29.0 pg (27-33) 01/28/25 15:45 MCHC 32.5 g/dL (30-55) 01/28/25 15:45 RDW 12.6 % (12.1-15.1) 01/28/25 15:45 Plt Count 173 10^3/cmm (157-399) 01/28/25 15:45 MPV 9.9 fL (7.4-10.4) 01/28/25 15:45 Neut % (Auto) 64.5 % 01/28/25 15:45 Lymph % (Auto) 25.6 % 01/28/25 15:45 Taylor % (Auto) 7.8 % 01/28/25 15:45 Eos % (Auto) 1.5 % 01/28/25 15:45 Baso % (Auto) 0.3 % 01/28/25 15:45 Neut # (Auto) 4.83 10^3/uL (1.8-7.7) 01/28/25 15:45 Lymph # (Auto) 1.9 10^3/uL (0.8-4.8) 01/28/25 15:45 Taylor # (Auto) 0.6 10^3/uL (0.2-0.9) 01/28/25 15:45 Eos # (Auto) 0.1 10^3/uL (0.0-0.8) 01/28/25 15:45 Baso # (Auto) 0.0 10^3/uL (0.0-0.1) 01/28/25 15:45 Nucleated RBC % (auto) 0 % 01/28/25 15:45 Nucleated RBCs # 0.0 /100WBC 01/28/25 15:45 Sodium 138 mmol/L (136-145) 01/28/25 15:45 Potassium 3.8 mmol/L (3.5-5.1) 01/28/25 15:45 Chloride 105 mmol/L (98-107) 01/28/25 15:45 Carbon Dioxide 22 mmol/L (22-29) 01/28/25 15:45 Anion Gap 14.8 (5-19) 01/28/25 15:45 BUN 15 mg/dL (6-20) 01/28/25 15:45 Creatinine 0.9 mg/dL (0.5-0.9) 01/28/25 15:45 GFR Calculation 77.6 mL/min (90-130) L 01/28/25 15:45 Glucose 85 mg/dL (65-115) 01/28/25 15:45 Calculated Osmolality 286 mOsm/kg (285-295) 01/28/25 15:45 Calcium 9.2 mg/dL (8.5-10.5) 01/28/25 15:45 Magnesium 1.9 mg/dL (1.7-2.3) 01/28/25 15:45 Total Bilirubin 0.3 mg/dL (0.15-1.2) 01/28/25 15:45 AST 17 U/L (0-32) 01/28/25 15:45 ALT 12 U/L (0-33) 01/28/25 15:45 Alkaline Phosphatase 74 U/L (35-105) 01/28/25 15:45 Total Protein 6.9 g/dL (6.6-8.7) 01/28/25 15:45 Albumin 4.0 g/dL (3.5-5.2) 01/28/25 15:45 Globulin 2.9 g/dL (1.3-4.6) 01/28/25 15:45 Urine Color Yellow (Yellow) 01/28/25 16:09 Urine Appearance Clear (CLEAR) 01/28/25 16:09 Urine pH 5.5 (5-7) 01/28/25 16:09 Ur Specific [place] 1.030 (1.005-1.030) 01/28/25 16:09 Urine Protein Trace (Negative) A 01/28/25 16:09 Urine Glucose (UA) Negative (Normal) 01/28/25 16:09 Urine Ketones 1+ (Negative) H 01/28/25 16:09 Urine Blood 3+ (Negative) A 01/28/25 16:09 Urine Nitrate Negative (Negative) 01/28/25 16:09 Urine Bilirubin Negative (Negative) 01/28/25 16:09 Urine Urobilinogen 1.0 mg/dL (Negative) 01/28/25 16:09 Ur Leukocyte Esterase Negative (Negative) 01/28/25 16:09 Urine RBC 21-50 /hpf (0-2) H 01/28/25 16:09 Urine WBC 0-5 /hpf (0-5) 01/28/25 16:09 Ur Squamous Epith Cells 6-10 /hpf (0-5) 01/28/25 16:09 Amorphous Sediment Not Reportable 01/28/25 16:09 Urine Bacteria None seen /hpf (NONE) 01/28/25 16:09 Hyaline Casts 6.17 /lpf 01/28/25 16:09 No radiology studies performed this visit Discharge Plan Discharge Patient Disposition: Home 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 Condition: Stable Prescriptions: No Action thiamine HCl (vitamin B1) 100 mg tablet 100 mg PO DAILY 30 Days Qty: 30 5RF fluoxetine 20 mg tablet 20 mg PO DAILY medroxyprogesterone 150 mg/mL syringe 150 mg IM Q90D bupropion HCl 150 mg tablet extended release 24 hr 150 mg PO DAILY ergocalciferol (vitamin D2) 1,250 mcg (50,000 unit) capsule 1,250 mcg PO Q7D 90 Days Qty: 13 3RF ibuprofen [Advil] 200 mg Tablet 800 mg PO Q6H PRN (Reason: Fever Or Pain) loperamide [Imodium] 2 mg Capsule 2 mg PO Q6H PRN (Reason: Diarrhea) Discharge Orders: Discharge ED (Routine); Ordered 01/28/25 Ordered By: Yannick Dykes Referrals: Angela Conley DO [Primary Care Provider, VEGETABLE GRADER] Discharge Diet: Usual diet Discharge Activity: Resume usual activity Patient Instructions: Opioid Safety, Pain Management, Patient Portal & Jenni Instructions Activity Restrictions/Additional Instructions: Thank you for choosing [facility] for your healthcare needs today. It is very important that you follow up as instructed or that you return to the Emergency Department should you have concerns or if your condition changes or worsens in any way. Follow-up with Dr. Roberts as planned complete EEG as scheduled. Stand Alone Forms: Work/School Release Print Language: Romanian Coding Level of Care Code ED Detention Deputy for Padilla Oswald
[2025-01-28 15:50] LABS: Hematocrit 37.8 % (36-47); Hemoglobin 12.30 g/dL (11.27-16.99); Mean Corpuscular HGB Conc 32.5 g/dL (30-55); Mean Corpuscular Hemoglobin 29.0 pg (27-33); Mean Corpuscular Volume 89.2 fl (85-98); Nucleated Red Blood Cells % 0 %; Platelet Count 173 10^3/cmm (157-399); Red Blood Count 4.24 10^6/uL (3.85-5.65); White Blood Count 7.47 10^3/uL (3.29-11.43)
[2025-01-28 16:06] LABS: Alanine Aminotransferase 12 U/L (0-33); Albumin Level 4.0 g/dL (3.5-5.2); Alkaline Phosphatase 74 U/L (35-105); Anion Gap 14.8 (5-19); Aspartate Amino Transferase 17 U/L (0-32); Blood Urea Nitrogen 15 mg/dL (6-20); Calcium 9.2 mg/dL (8.5-10.5); Carbon Dioxide 22 mmol/L (22-29); Chloride 105 mmol/L (98-107); Creatinine Clr Calc Pharmacy 106.7270; Globulin 2.9 g/dL (1.3-4.6); Glucose 85 mg/dL (65-115); Magnesium 1.9 mg/dL (1.7-2.3); Osmolality Calculated 286 mOsm/kg (285-295); Potassium 3.8 mmol/L (3.5-5.1); Sodium 138 mmol/L (136-145); Total Protein 6.9 g/dL (6.6-8.7)
[2025-01-28 16:30] VITALS: BP 98/57; PULSE 64; RESP 16; O2SAT 100
[2025-01-28 16:30] LABS: Glucose Urine UA Negative (Normal); Nitrate Urine Negative (Negative); Specific Gravity, Urine 1.030 (1.005-1.030)
[2025-01-28 16:33] LABS: Add Urine Microscopic? YES
== END 2025-01-28 16:38 | disposition home or self-care (01) ==
PROVIDERS: Emergency Provider Family Medicine; PCP Family Medicine
DX: F44.5 Conversion disorder with seizures or convulsions (principal); Z72.0 Tobacco use
CPT/HCPCS: 36415; 80053; 81001; 83735; 85025; 87086; 93005; 99284

== ENCOUNTER 2025-02-12 07:57 | Outpatient (CLI) | payer MEDICAID, SELFPAY ==
--- NOTE | 2025-02-12 08:00 | MR_ITS ---
WS: [id number] MRI HEAD WITHOUT AND WITH GADOLINIUM ENHANCEMENT WITH PITUITARY PROTOCOL TECHNIQUE: Sagittal T1, T2 axial, T2 axial FLAIR, axial susceptibility weighted imaging, axial diffusion weighted images, and coronal T2 images were obtained. Pre and post-T1 axial and post T1 coronal images. ADC and FSPGR images. 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 No hydrocephalus. Normal fourth ventricle. Normal brainstem signal. Mild crowding of the foramen magnum. No restricted diffusion. No suspicious intracranial signal abnormalities. Normal vascular flow voids at the skull base. Mild mucosal thickening in the paranasal sinuses. No hemosiderin. Normal optic chiasm and pituitary infundibulum. Normal sella. Normal homogeneous pituitary enhancement today. No evidence of intrasellar or suprasellar mass. No definite lesions on the dynamic images. Small incidental focus of hypoenhancement in the RIGHT cavernous sinus appears outside the pituitary l ikely a tiny vessel. IMPRESSION slice thickness and volume averaging. Recommend confirmation with pituitary function study correlation.: 1. Stable Chiari I malformation 2. Pituitary has a normal appearance today. Previously described possible microadenoma not seen today and was likely due to volume averaging and slice thickness. Recommend confirmation with pituitary function studies correlation. No evidence of intrasellar or suprasellar mass. 3. No other suspicious findings.
--- NOTE | 2025-02-12 08:45 | MR_ITS ---
WS: [id number] MR CERVICAL SPINE WO/W HISTORY: M54.2 - Cervicalgia TECHNIQUE: Sagittal T1, T2 and T2 inversion recovery; axial T2, T2 gradient and fiesta. Post gadolinium imaging with fat saturation technique. FINDINGS:Straightening of the normal cervical lordosis. No high grade central canal narrowing. Cord signal is normal. No abnormal gadolinium enhancement. No lesions in the cervical cord. C2-3: Spinal canal and foramen are patent. C3-4: Spinal canal and foramen are patent. C4-5: Mild facet arthropathy. Spinal canal and foramen are patent. C5-6: Mild facet arthropathy. Spinal canal and foramen are patent. C6-7: Spinal canal and foramen are patent. C7-T1: Spinal canal and foramen are patent. Chiari I malformation MR/MR cervical spine wo/w [id number] IMPRESSION: 1. Straightening of the normal cervical lordosis. No high-grade central canal narrowing. Cord signal is normal. 2. Chiari I malformation 3. No abnormal gadolinium enhancement. No visualized lesions in the cervical c ord. 4. Mild facet arthropathy C4-C5 and C5-C6.
[2025-02-12] MEDS: gadobenate dimeglumine 20 mL vial IV (09:16)
== END 2025-02-12 07:58 | disposition home or self-care (01) ==
LOC: RAD 07:58
PROVIDERS: PCP Family Medicine; Visit Provider Psychiatry & Neurology Neurology
DX: D35.2 Benign neoplasm of pituitary gland (principal); M54.2 Cervicalgia; M47.812 Spondylosis without myelopathy or radiculopathy, cervical region; M46.92 Unspecified inflammatory spondylopathy, cervical region; G93.5 Compression of brain
CPT/HCPCS: 70553; 72156

== ENCOUNTER 2025-04-09 19:48 | Emergency (ER) | payer MEDICAID, SELFPAY ==
[2025-04-09 19:50] VITALS: BP 121/77; PULSE 56; RESP 13; TEMP 37; O2SAT 99; BMI 40.0
--- OUTSIDE RECORDS SUMMARY | 2025-04-09 19:53 | XMS_ITS | Patient Health Record ---
Author Organization [facility] [employer] Address [address] [place] [address] Care Team Providers Care Retail Sales Merchandiser Development Name Role Phone No Primary, Care Provider [...] Status Risk Notes Problem Borderline personality disorder (05089957) Borderline personality disorder (F60.3) Active confirmed Problem Insomnia (210566240) Other insomnia (G47.09) Active confirmed Problem Obesity (389289952) Obesity (BMI 30-39.9) (E66.9) Active confirmed Problem Metabolic screening test (685348389) Screening for metabolic disorder (Z13.228) Active confirmed Problem Mixed anxiety and depressive disorder (431217653) Depression with anxiety (F41.8) Active confirmed Problem Excessive and frequent menstruation (532578232) Menorrhagia with regular cycle (N92.0) Active confirmed Problem Morbid obesity (761715855) Morbid obesity due to excess calories (E66.01) Active confirmed Problem Excessive daytime sleepiness (7984464714) Excessive daytime sleepiness (G47.19) Active confirmed Plan [...] Insured Coverage Start Date Coverage End Date [facility] [address] [place] [phone] [id number] Conchita Cancino Self - patient is the insured 3 [employer] [address] [place] [address] [id number] Conchita Cancino Self - patient is the insured 4 Medical (General) History Medical History History ICD Code Anxiety Depression Surgical History Surgery Date(Month/Year) Past Surgical History was re quested of patient but none was remarked.
--- NOTE | 2025-04-09 19:56 | W.ED.SEIZURE ---
HPI - Seizure General: Chief Complaint: Seizure Stated Complaint: possible seizures Time Seen by Provider: 04/09/25 19:51 History of Present Illness: HPI Narrative: 24yo F w/cc of seizure like events today, increased in frequency. Patient has a h/o stable Chiari I malformation. She has had recent MRI imaging of head, C spine and pituitary MR Head 01/24/2025: MPRESSION: 1. No acute hemorrhage, enhancing mass or edema. 2. Mild Chiari malformation suspected. Cerebellar tonsils are slightly pointed extending 5.3 mm below the foramen magnum. On the CT of 10/20/2024 the descent of the tonsils was less and more likely ectopia. Recommend follow-up cervical spine MRI with and without contrast to evaluate for syrinx and to reevaluate the extent of a Chiari malformation versus ectopia. 3. Areas of decreased enhancement in the sella turcica seen only on a few sequences. Pituitary microadenomas suspected. Recommend follow-up dedicated MRI pituitary gland. MR Pituitary 02/12/2025: IMPRESSION slice thickness and volume averaging. Recommend confirmation with pituitary function study correlation.: 1. Stable Chiari I malformation 2. Pituitary has a normal appearance today. Previously described possible microadenoma not seen today and was likely due to volume averaging and slice thickness. Recommend confirmation with pituitary function studies correlation. No evidence of intrasellar or suprasellar mass. 3. No other suspicious findings. MR C spine 02/12/2025 IMPRESSION: 1. Straightening of the normal cervical lordosis. No high-grade central canal narrowing. Cord signal is normal. 2. Chiari I malformation 3. No abnormal gadolinium enhancement. No visualized lesions in the cervical cord. 4. Mild facet arthropathy C4-C5 and C5-C6. Patient also follows with Dr. 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 On my exam, patient is experiencing a brief event during which she keeps her eyes shut and does not let me open them. They are not deviated when I am able to look. Event is terminated w/sternal rub. There is no post ictal period and no tongue biting, loss of bowel or bladder continence. In short, her event is not consistent w/seizure. Post event, patient does not answer questions and states I don't know to most of my questions. She does deny fever, chills, malaise, current chest pain, shortness of breath, abdominal pain. She's not been vomiting today. Shortly after my first exam, patient wishes to leave prior to completion of workup. She is alert, oriented albeit tearful. She is able to answer my questions appropriately and is ambulatory. She has decision making capacity. Patient's signficant other feels that what she needs are full spinal MRIs and a neurosurgeon. Related Data Home Medications ?Medication ?Instructions ?Recorded ?Confirmed ibuprofen 200 mg tablet (Advil) 800 mg PO Q6H PRN Fever Or Pain 10/20/24 03/04/25 bupropion HCl 150 mg 24 hr tablet, 150 mg PO DAILY 12/31/24 03/04/25 extended release fluoxetine 20 mg tablet 20 mg PO DAILY 12/31/24 03/04/25 medroxyprogesterone 150 mg/mL 150 mg IM Q90D 12/31/24 03/04/25 intramuscular syringe loperamide 2 mg capsule 2 mg PO Q6H PRN Diarrhea 01/28/25 03/04/25 Previous Rx's ?Medication ?Instructions ?Recorded thiamine HCl (vitamin B1) 100 mg 100 mg PO DAILY 30 days #30 tabs 01/16/25 tablet ergocalciferol (vitamin D2) 1,250 1,250 mcg PO Q7D 3 months #13 caps 01/27/25 mcg (50,000 unit) capsule Allergies Allergy/AdvReac Type Severity Reaction Status Date / Time Penicillins Allergy Severe ALGY-Swell Verified 01/28/25 14:50 Lip/Tongue/Throat nutmeg oil (Myristica seed AdvReac Severe ADR-Halluci Verified 01/28/25 14:50 oil) [facility] Medical History (Updated 04/09/25 @ 21:23 by Ami Medina MD) Injury of foot including toes Bronchospasm Cluster B personality disorder Recurrent UTI Anxiety and depression Surgical History H/O esophagogastroduodenoscopy (03/03/20) normal Family History Other Bipolar disorder Social History Smoking and tobacco/nicotine status: current every day tobacco/nicotine user Quit status (tobacco/nicotine): has tried quititng Number of times tried to quit tobacco: 6 Second hand smoke exposure: Yes Alcohol intake: never Substance/Drug Use: current Substance/Drug use frequency: daily Other substance/drug use details: Has card. Adopted: No Caregiver/support person: No Lives independently: Yes Household members: family Housing: House Marital status: Single Number of children: 0 Highest education level completed: High School Graduate service: No Current occupational status: employed Current occupation: [employer] Do you think of yourself as: Straight/Heterosexual Female Reproductive History: Para: 0 Spontaneous abortions: Yes (06/22/2019 had total 4 SAB but does not know when <8 weeks) Physical Exam Narrative: EXAM NARRATIVE: Vital signs were reviewed. (After seizure like event described above) Patient is alert and oriented. PERRL, EOMI. Patient is breathing comfortably, no increased WOB or accessory muscle use. SpO2 is above 95% on RA. She has clear lungs b/l. No hypotension or tachycardia. Abdomen is soft, nondistended and nontender. Patient is moving all extremities, no deformity or gross injury. Course Vital Signs: Vital signs: Vital Signs Temperature 98.6 F 04/09/25 19:50 Pulse Rate 65 04/09/25 20:02 Respiratory Rate 18 04/09/25 20:02 Blood Pressure 118/66 04/09/25 20:02 Pulse Oximetry 99 04/09/25 20:02 Oxygen Delivery Me thod Room Air 04/09/25 19:50 MDM - Seizure Lab Data 04/09/25 19:45 04/09/25 19:45 Labs: Laboratory Results WBC 9.16 10^3/uL (3.29-11.43) 04/09/25 19:45 RBC 4.19 10^6/uL (3.85-5.65) 04/09/25 19:45 Hgb 12.60 g/dL (11.27-16.99) 04/09/25 19:45 Hct 37.9 % (36-47) 04/09/25 19:45 MCV 90.5 fl (85-98) 04/09/25 19:45 MCH 30.1 pg (27-33) 04/09/25 19:45 MCHC 33.2 g/dL (30-55) 04/09/25 19:45 RDW 13.2 % (12.1-15.1) 04/09/25 19:45 Plt Count 239 10^3/cmm (157-399) 04/09/25 19:45 MPV 9.9 fL (7.4-10.4) 04/09/25 19:45 Neut % (Auto) 53.5 % 04/09/25 19:45 Lymph % (Auto) 35.9 % 04/09/25 19:45 [place] % (Auto) 5.9 % 04/09/25 19:45 Eos % (Auto) 4.0 % 04/09/25 19:45 Baso % (Auto) 0.4 % 04/09/25 19:45 Neut # (Auto) 4.89 10^3/uL (1.8-7.7) 04/09/25 19:45 Lymph # (Auto) 3.3 10^3/uL (0.8-4.8) 04/09/25 19:45 [place] # (Auto) 0.5 10^3/uL (0.2-0.9) 04/09/25 19:45 Eos # (Auto) 0.4 10^3/uL (0.0-0.8) 04/09/25 19:45 Baso # (Auto) 0.0 10^3/uL (0.0-0.1) 04/09/25 19:45 Nucleated RBC % (auto) 0 % 04/09/25 19:45 Nucleated RBCs # 0.0 /100WBC 04/09/25 19:45 Sodium 138 mmol/L (136-145) 04/09/25 19:45 Potassium 3.6 mmol/L (3.5-5.1) 04/09/25 19:45 Chloride 104 mmol/L (98-107) 04/09/25 19:45 Carbon Dioxide 21 mmol/L (22-29) L 04/09/25 19:45 Anion Gap 16.6 (5-19) 04/09/25 19:45 BUN 15 mg/dL (6-20) 04/09/25 19:45 Creatinine 0.8 mg/dL (0.5-0.9) 04/09/25 19:45 GFR Calculation 88.9 mL/min (90-130) L 04/09/25 19:45 Glucose 82 mg/dL (65-115) 04/09/25 19:45 Calculated Osmolality 286 mOsm/kg (285-295) 04/09/25 19:45 Lactic Acid 1.8 mmol/L (0.5-2.2) 04/09/25 19:45 Calcium 9.2 mg/dL (8.5-10.5) 04/09/25 19:45 Total Bilirubin 0.3 mg/dL (0.15-1.2) 04/09/25 19:45 AST 49 U/L (0-32) H 04/09/25:45 ALT 23 U/L (0-33) 04/09/25 19:45 Alkaline Phosphatase 61 U/L (35-105) 04/09/25 19:45 Total Protein 7.1 g/dL (6.6-8.7) 04/09/25 19:45 Albumin 4.3 g/dL (3.5-5.2) 04/09/25 19:45 Globulin 2.8 g/dL (1.3-4.6) 04/09/25 19:45 No radiology studies performed this visit ED provider radiology interpretation(s): 24-year-old female presenting with a chief complaint of increasing frequency of seizure-like events. She has a history of Chiari I malformation, conversion disorder with nonepileptic events. Differential diagnosis includes, is limited to, seizure, pseudoseizure, conversion disorder, migraine, syncope, underlying illness such as upper respiratory infection, pneumonia, gastroenteritis, urinary tract infection, other. On initial exam patient is hemodynamically stable. I was able to witness 1 event and it is clinically inconsistent with an epileptic seizure. Lab work was ordered and includes CBC, CMP and lactic acid. Patient does not have an elevated white blood cell count, is not anemic, does not have any actionable electrolyte abnormalities, has normal kidney function, liver function and lactic acid is within normal limits which supports the fact that this is not a true seizure. It appears that this is no different than her previous events. I do not feel that this patient is experiencing a medical emergency. She wishes to leave prior to completion of workup, namely UA and screen. She has decision-making capacity and feel that it is indeed reasonable to discharge her. Patient was counseled on supportive care at home, given return precautions and advised to follow-up with her neurologist. Discharge Plan Discharge Patient Disposition: Home Clinical Impression: Non-epileptic convulsion Condition: Stable Prescriptions: No Action thiamine HCl (vitamin B1) 100 mg tablet 100 mg PO DAILY 30 Days Qty: 30 5RF fluoxetine 20 mg tablet 20 mg PO DAILY medroxyprogesterone 150 mg/mL syringe 150 mg IM Q90D bupropion HCl 150 mg tablet extended release 24 hr 150 mg PO DAILY ergocalciferol (vitamin D2) 1,250 mcg (50,000 unit) capsule 1,250 mcg PO Q7D 90 Days Qty: 13 3RF ibuprofen [Advil] 200 mg Tablet 800 mg PO Q6H PRN (Reason: Fever Or Pain) loperamide [Imodium] 2 mg Capsule 2 mg PO Q6H PRN (Reason: Diarrhea) Discharge Orders: Discharge ED (Routine); Ordered 04/09/25 Ordered By: Ami Medina Referrals: Angela Conley DO [Primary Care Provider, MAINTENANCE OPERATOR] Patient Instructions: Stress Print Language: Liberian Coding Level of Care Code ED Telephone Quotation Clerk for Padilla Oswald
[2025-04-09 20:02] VITALS: BP 118/66; PULSE 65; RESP 18; O2SAT 99
[2025-04-09 20:21] LABS: Hematocrit 37.9 % (36-47); Hemoglobin 12.60 g/dL (11.27-16.99); Mean Corpuscular HGB Conc 33.2 g/dL (30-55); Mean Corpuscular Hemoglobin 30.1 pg (27-33); Mean Corpuscular Volume 90.5 fl (85-98); Nucleated Red Blood Cells % 0 %; Platelet Count 239 10^3/cmm (157-399); Red Blood Count 4.19 10^6/uL (3.85-5.65); White Blood Count 9.16 10^3/uL (3.29-11.43)
[2025-04-09 20:42] LABS: Lactic Sepsis W/Reflex 1.8 mmol/L (0.5-2.2)
[2025-04-09 20:43] LABS: Alanine Aminotransferase 23 U/L (0-33); Albumin Level 4.3 g/dL (3.5-5.2); Alkaline Phosphatase 61 U/L (35-105); Anion Gap 16.6 (5-19); Aspartate Amino Transferase 49 U/L (0-32); Blood Urea Nitrogen 15 mg/dL (6-20); Calcium 9.2 mg/dL (8.5-10.5); Carbon Dioxide 21 mmol/L (22-29); Chloride 104 mmol/L (98-107); Creatinine Clr Calc Pharmacy 125.0805; Globulin 2.8 g/dL (1.3-4.6); Glucose 82 mg/dL (65-115); Osmolality Calculated 286 mOsm/kg (285-295); Potassium 3.6 mmol/L (3.5-5.1); Sodium 138 mmol/L (136-145); Total Protein 7.1 g/dL (6.6-8.7)
== END 2025-04-09 20:34 | disposition home or self-care (01) ==
PROVIDERS: Emergency Provider Emergency Medicine; PCP Family Medicine
DX: R56.9 Unspecified convulsions (principal); Z72.0 Tobacco use; G93.5 Compression of brain; M47.812 Spondylosis without myelopathy or radiculopathy, cervical region
CPT/HCPCS: 80053; 83605; 85025; 99283

== ENCOUNTER 2025-04-19 13:12 | Emergency (ER) | payer MEDICAID, SELFPAY ==
[2025-04-19 13:15] VITALS: BP 101/59; PULSE 52; RESP 12; O2SAT 98
--- OUTSIDE RECORDS SUMMARY | 2025-04-19 13:19 | XMS_ITS | Patient Health Record ---
Author Organization [facility] Address [address] [place] [address] Care Team Providers Care Manager Academic Name Role Phone No Primary, Care Provider [...] Status Risk Notes Problem Borderline personality disorder (39628174) Borderline personality disorder (F60.3) Active confirmed Problem Insomnia (833114667) Other insomnia (G47.09) Active confirmed Problem Obesity (094554790) Obesity (BMI 30-39.9) (E66.9) Active confirmed Problem Metabolic screening test (570013128) Screening for metabolic disorder (Z13.228) Active confirmed Problem Mixed anxiety and depressive disorder (103932450) Depression with anxiety (F41.8) Active confirmed Problem Excessive and frequent menstruation (812958693) Menorrhagia with regular cycle (N92.0) Active confirmed Problem Morbid obesity (201604787) Morbid obesity due to excess calories (E66.01) Active confirmed Problem Excessive daytime sleepiness (1196813191) Excessive daytime sleepiness (G47.19) Active confirmed Plan [...] Insured Coverage Start Date Coverage End Date [facility] [address] [place] [id number] Conchita Cancino Self - patient is the insured 3 3 [employer] [address] [place] [address] [id number] Conchita Cancino Self - patient is the insured 4 Medical (General) History Medical History History ICD Code Anxiety Depression Surgical History Surgery Date(Month/Year) Past Surgical History was re quested of patient but none was remarked.
--- NOTE | 2025-04-19 13:26 | CTR_ITS ---
PROCEDURE INFORMATION: Exam: CT Lumbar Spine Without Contrast Exam date and time: 04/19/2025 2:30 PM Age: 24 years old Clinical indication: Low back pain; Additional info: Severe pain TECHNIQUE: Imaging protocol: Computed tomography of the lumbar spine without contrast. Radiation optimization: All CT scans at this facility use at least one of these dose optimization techniques: automated exposure control; mA and/or kV adjustment per patient size (includes targeted exams where dose is matched to clinical indication); or iterative reconstruction. COMPARISON: CT abdomen pelvis w con* [id number] 11/22/2019 4:19 PM RADIATION DOSE METRICS: Total DLP (mGy-cm): 834.75 FINDINGS: Bones/joints: No acute fracture. Normal alignment. L1-L2: No significant disc bulge or herniation. No severe spinal canal stenosis. No significant neural foraminal narrowing. L2-L3: No significant disc bulge or herniation. No severe spinal canal stenosis. No significant neural foraminal narrowing. L3-L4: No significant disc bulge or herniation. No severe spinal canal stenosis. No significant neural foraminal narrowing. L4-L5: No significant disc bulge or herniation. No severe spinal canal stenosis. No significant neural foraminal narrowing. L5-S1: No significant disc bulge or herniation. No severe spinal canal stenosis. No significant neural foraminal narrowing. Kidneys and ureters: One or more nonobstructing left renal calyceal stones. Soft tissues: Unremarkable. CT/CT lumbar spine wo con* [id number] IMPRESSION: 1. One or more nonobstructing left renal calyceal stones. 2. No acute spine findings.
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
[2025-04-19 13:54] LABS: Glucose Urine UA Negative (Normal); Nitrate Urine Negative (Negative)
[2025-04-19 13:56] VITALS: BP 112/56; PULSE 47; RESP 13; O2SAT 97
[2025-04-19 13:56] LABS: HCG Qualitative Urine. Negative (Negative)
[2025-04-19 13:59] LABS: Add Urine Microscopic? YES
[2025-04-19 14:00] LABS: Specific Gravity, Urine 1.037 (1.005-1.030)
[2025-04-19] MEDS: ondansetron 2 mg/ML SDV 2 mL 4 MG IVP (14:09)
[2025-04-19 14:49] LABS: PCP Screen Urine Negative (Negative)
[2025-04-19 14:52] LABS: Hematocrit 38.1 % (36-47); Hemoglobin 12.20 g/dL (11.27-16.99); Mean Corpuscular HGB Conc 32.0 g/dL (30-55); Mean Corpuscular Hemoglobin 29.3 pg (27-33); Mean Corpuscular Volume 91.6 fl (85-98); Nucleated Red Blood Cells % 0 %; Platelet Count 217 10^3/cmm (157-399); Red Blood Count 4.16 10^6/uL (3.85-5.65); White Blood Count 7.72 10^3/uL (3.29-11.43)
[2025-04-19 15:10] LABS: Alanine Aminotransferase 19 U/L (0-33); Albumin Level 4.0 g/dL (3.5-5.2); Alkaline Phosphatase 67 U/L (35-105); Anion Gap 12.2 (5-19); Aspartate Amino Transferase 17 U/L (0-32); Blood Urea Nitrogen 16 mg/dL (6-20); Calcium 8.6 mg/dL (8.5-10.5); Carbon Dioxide 24 mmol/L (22-29); Chloride 104 mmol/L (98-107); Creatinine Clr Calc Pharmacy 122.5742; Globulin 2.3 g/dL (1.3-4.6); Glucose 82 mg/dL (65-115); Magnesium 1.8 mg/dL (1.7-2.3); Osmolality Calculated 282 mOsm/kg (285-295); Potassium 4.2 mmol/L (3.5-5.1); Sodium 136 mmol/L (136-145); Total Protein 6.3 g/dL (6.6-8.7)
[2025-04-19 15:39] VITALS: BP 105/61; PULSE 58; O2SAT 91
--- NOTE | 2025-04-19 16:07 | PC.NURSE ---
@1240- pt up to bedside commode with ob nurse assistance. Nurse sent SO for help d/t seizure like activity. Event lasted approx 1 min, resolving shortly after patient lifted back into her bed. vitals obtained, airway patent with even respirations. Pt alert and c/o back pain with in 2 mins of event.
== END 2025-04-19 15:44 | disposition home or self-care (01) ==
PROVIDERS: Emergency Provider Physician Assistant; PCP Family Medicine
DX: M54.50 Low back pain, unspecified (principal); R56.9 Unspecified convulsions; F41.9 Anxiety disorder, unspecified; Z72.0 Tobacco use
CPT/HCPCS: 36415; 72131; 80053; 80306; 81001; 81025; 83735; 84146; 85025; 96361; 96374; 96375; 99285; J2312; J2405; J7120